=== PATIENT | male | born 1965 | race Caucasian/White ===

== ENCOUNTER 2019-03-13 11:23 | Emergency (ER) | payer OTHER ==
[~2019-03-13] VITALS: Ht 162.6 cm; Wt 76.7 kg
--- NOTE | 2019-03-13 12:03 | REP ---
There is soft tissue scalp swelling over the left occipital and parietal region. CT brain without contrast: History: Altered mental status. No comparison prior studies available. Findings: Preliminary digital director medical radiograph demonstrates what appears to be three ventricular shunt catheter is over the posterior calvarium. On bone window settings of the bony calvarium is otherwise intact. There is some vascular calcification in the carotid siphons. The visualized paranasal sinuses are clear. There are three intracranial ventriculostomy catheters noted. Two catheters are seen in the posterior fossa coursing through the right posterior cerebellar hemisphere and into the fourth ventricle and terminating in the midline at the midbrain level. There is diffuse atrophy of the right cerebellar hemisphere. The third ventriculostomy tube courses through the right occipital parietal lobe region into the right lateral ventricle. There is moderate ventriculomegaly involving the lateral and third ventricles. There is no evidence of midline shift. No intracranial hemorrhage or mass is seen. The fourth ventricle is normal in size. No transependymal resorption is appreciated. Impression: A total of three BALLAST INSPECTOR shunt catheters are noted in place. There is moderate ventriculomegaly involving the lateral and third ventricles. Normal fourth ventricle. Diffuse atrophy of the right cerebellar hemisphere is noted. No other acute intracranial abnormality. Left occipital parietal scalp swelling. Electronically Signed by Roger Almonte MD 03/13/2019 11:54 A
[2019-03-13 12:16] LABS: BASO % 0.5 % (0.0-1.0); EOS # 0.1 10^3/uL (0.0-0.5); EOS % 1.5 % (0.0-3.0); HEMATOCRIT 48.7 % (42.0-52.0); LYMPH # 0.8 10^3/uL (1.5-5.0); LYMPH % 13.5 % (24.0-44.0); MEAN CORPUSCULAR HEMOGLOBIN 31.5 pg (27.0-33.0); MEAN CORPUSCULAR HGB CONC 34.9 g/dl (32.0-36.5); MEAN CORPUSCULAR VOLUME 90.2 fl (80.0-96.0); MONO # 0.6 10^3/uL (0.0-0.8); MONO % 9.3 % (0.0-5.0); NEUTROPHILS # 4.6 10^3/uL (1.5-8.5); NEUTROPHILS % 74.9 % (36.0-66.0); PLATELET COUNT, AUTOMATED 209 10^3/uL (150-450); WHITE BLOOD COUNT 6.2 10^3/uL (4.0-10.0)
[2019-03-13 12:52] LABS: ALBUMIN 3.6 GM/DL (3.2-5.2); ALT/SGPT 26 U/L (12-78); BILIRUBIN,DIRECT 0.3 MG/DL (0.0-0.2); BILIRUBIN,TOTAL 1.4 MG/DL (0.2-1.0); BLOOD UREA NITROGEN 15 MG/DL (7-18); CALCIUM LEVEL 9.3 MG/DL (8.5-10.1); CARBON DIOXIDE LEVEL 31 MEQ/L (21-32); CHLORIDE LEVEL 104 MEQ/L (98-107); CK-MB VALUE MASS 1.2 NG/ML (<3.6); CPK CREATINE PHOSPHOKINASE 72 U/L (39-308); CREATININE FOR GFR 1.03 MG/DL (0.70-1.30); GLOMERULAR FILTRATION RATE > 60.0 (>56); GLUCOSE, FASTING 83 MG/DL (70-100); MB/CK RELATIVE INDEX 1.67 (< OR =4); POTASSIUM SERUM 4.6 MEQ/L (3.5-5.1); SODIUM LEVEL 140 MEQ/L (136-145); THYROID STIMULATING HORMONE 0.571 uIU/ML (0.358-3.740); TOTAL PROTEIN 7.1 GM/DL (6.4-8.2); TROPONIN I < 0.02 NG/ML (< 0.10)
--- NOTE | 2019-03-13 13:52 | REP ---
SHUNT SERIES: Six views. HISTORY: SHAKE BACKBOARD NOTCHER shunt. Ataxia. No comparison imaging. FINDINGS: Frontal and lateral views of the skull demonstrate three ventriculostomy catheters in place over the posterior calvarium. I cannot resolve a radiopaque catheter between the suboccipital cervical tissues on the lateral view and the mid chest level anteriorly in the right perihilar region. I cannot exclude a discontinuous or interrupted SHAKE BACKBOARD NOTCHER shunt catheter system. There is a large length of coiled catheter tubing in the right abdomen intraperitoneally. There are calcifications projecting over the right colon. The bowel gas pattern is unremarkable. There are surgical clips in the left upper quadrant. IMPRESSION: Ventriculoperitoneal shunt tubing noted in the head, chest and abdomen. I cannot visualize opaque tubing between the suboccipital cervical tissues and the right anterior mid chest level. Findings are suspicious for shunt tube discontinuity. There are no available prior radiographs. Electronically Signed by Roger Almonte MD 03/13/2019 03:18 P
[2019-03-13 14:03] LABS: VITAMIN B12 LEVEL 298 PG/ML
[2019-03-13 17:29] VITALS: BP 120/70
--- NOTE | 2019-03-14 00:39 | ECGEPIP ---
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
== END 2019-03-13 17:34 | disposition short-term general hospital (02) ==
LOC: M ED 11:23
DX: T85.02XA Displacement of ventricular intracranial (communicating) shunt, initial encounter (principal); R41.82 Altered mental status, unspecified; R69 Illness, unspecified; R27.0 Ataxia, unspecified; Z98.2 Presence of cerebrospinal fluid drainage device

== ENCOUNTER 2019-03-22 12:15 | Inpatient (IN) | payer OTHER ==
[~2019-03-22] VITALS: Ht 162.6 cm; Wt 75.0 kg
--- NOTE | 2019-03-22 12:44 | HPEPDOC ---
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 He was cleared for surgery and on 03-14-19 underwent a right sided frontal ventriculoperitoneal shunt placement without complication. His surgery was performed by Dr. Gonzalez of neurosurgery and Dr. Maurice of general surgery. Post-op shunt CT head showed, Shunt catheter placement with postsurgical changes as described. No acute intracranial hemorrhage. Moderate to severe diffuse ventriculomegaly. Shunt series imaging did not show kinking, however there was concern on XR abdomen of retained catheter fragment for which no further intervention was initiated. He was evaluated by therapy and noted to be well below his prior level of function and deemed medically appropriate for discharge to ARU on 03-22-19 REVIEW OF SYSTEMS: The following is a completed review of systems and has been reviewed. Review of systems otherwise unremarkable. PAIN: Patient self reports no pain EYES: No recent vision changes EARS, NOSE, & THROAT: No throat pain, or dysphagia, or rhinorrhea. CARDIOVASCULAR: Denies chest pain or palpitations PULMONARY: Denies shortness of breath GASTROINTESTINAL: Denies constipation/diarrhea GENITOURINARY: no dysuria MUSCULOSKELETAL:generalized weakness NEUROLOGICAL:gait instability/ hydrocephalus HEMATOLOGICAL: no easy bruising SKIN: skull incision PSYCHIATRIC: Unremarkable All other review of systems found to be negative. PAST MEDICAL HISTORY: as per HPI PAST SURGICAL HISTORY: as per HPI ALLERGIES: Please see below. MEDICATIONS: Please see below. 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 GENERAL: Pleasant and cooperative. No acute distress. HEENT: PERRL. Extraocular movements intact. Clear conjunctiva CARDIOVASCULAR: Regular rate and rhythm. No murmurs, rubs, or gallops LUNGS: Clear to auscultation bilaterally. No wheezes. No rhonchi ABDOMEN: Soft, nontender, nondistended. Positive bowel sounds. Normal active bowel sounds NEUROLOGICAL: Alert and oriented times three. Cranial nerves II through XII grossly intact. Sensation grossly intact no dysmetria EXTREMITIES: 5\5 strength bilateral upper extremities. 5\5 strength right lower extremity. 5/5 strength in left lower extremity. SKIN: right frontal bibi c/d/i, scattered and diffuse fibromas covering entire body LABORATORY DATA: Please see below. IMAGING: Imaging documentation personally reviewed by record. FUNCTIONAL STATUS: Premorbid: Independent with all activities of daily life as well as mobility, at times will use a cane or rollator On Admission: Minimum assistance for bathing, upper body dressing, bed chair and wheelchair transfers, toilet transfers, ambulation. GOALS: Modified Independent community distances with RW, stairs, functional transfers, dressing, bathing, toileting, medical optimization. ASSESSMENT:53-year-old M with past medical history of posterior fossa cyst s/p multiple ELECTRICAL TECH/PROJECT MANAGER shunts who presents status post new VPS placement PLAN: 1. rehab: PT- advance gait, improve balance, fall recovery- stretch/strengthen/ improve ROM bilat LE OT- stretch/strengthen/ improve ROM bilat UE, advance ADLs CUSTOMER SOLUTIONS ARCHITECT- evaluate and treat 2. 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 -avoid heavy lifiting >15 pounds, bibi ok to be removed 03-28-19, f/u Dr. Gonzalez 04-06-19 at 9:15 am -avoid delirogenic meds, will keep head of bed elevated 3. CArdio: no hx, will monitor BPs while here, medicine consulted to assist in overall management 4. Resp: encourage incentive spirometry 5. - monitor PVRs 6. GI ppx: protonix 7. DVT ppx: lovenox and teds 8. Pain: Tylenol prn 9. Dispo: TBD POST ADMISSION PHYSICIAN EVALUATION: Medical and functional status: Description of medical status, medical as sessment: As above. Rehabilitation diagnosis and current and prior cold morbid medical conditions as above. Risk of complications and plans to mitigate them as above. Description of functional status current status is as above. Prior status as above. Status compared to preadmission: There are no clinically significant differences between the patient's current status and the information described on the preadmission screening document. Treatment plan anticipated: Treatment plan is as described above. Required disciplines including physical therapy, occupational therapy, others as noted above. Intensity of services: 3 hours a day, 6 days a week. Special considerations: There are no specific special or safety considerations that would likely preclude immediate implementation of an intensive rehabilitation program or subsequently influence the plan of care. ATTESTATION: Considering all the information above, it is my best judgment that this patient requires intensive rehabilitation therapy as described above and an inpatient hospital environment due to the complexity of nursing, medical, and rehabilitation needs required by the patient. Furthermore, this patient can reasonably be expected to participate in an benefit from an inpatient rehabilitation stay with an interdisciplinary team approach to the delivery of rehabilitation care under the direction and supervision of rehabilitation physician. PROGNOSIS: Excellent ESTIMATED LENGTH OF STAY:10-14 days. PROJECTED DISCHARGE DESTINATION: Home with family support and any durable medical equipment required to increase functional safety and mobility. TIME SPENT COUNSELING AND COORDINATING INITIAL CARE: Greater than 70 minutes. Vital Signs Vital Signs Date Time Temp Pulse Resp B/P (MAP) Pulse Ox O2 Delivery O2 Flow Rate FiO2 03/22/19 15:00 97.7 84 20 112/75 (87) 98 Home Medications Scheduled Magnesium Hydroxide (Milk of Magnesia) 400 Mg/5 Ml Oral.susp, 45 ML PO QHS, (Reported) Scheduled PRN Acetaminophen (Acetaminophen ER) 650 Mg Tablet.er, 650 MG PO Q6H PRN for PAIN / FEVER, (Reported) Bisacodyl (Dulcolax) 10 Mg Supp.rect, 10 MG RI Q3RD PRN for CONSTIPATION, (Reported) Hydralazine HCl (Hydralazine HCl) 20 Mg/1 Ml Vial, 10 MG IV Q4H PRN for HIGH BLOOD PRESSURE, (Reported) IF SBP>160 Metoprolol Tartrate (Metoprolol Tartrate) 5 Mg/5 Ml Ampul, 5 MG IV Q6H PRN for HIGH BLOOD PRESSURE, (Reported) GIVE IF SBP >140 Ondansetron HCl (Ondansetron HCl) 4 Mg/5 Ml Solution, 4 MG IV Q8H PRN for NAUSEA OR VOMITING, (Reported) Sennosides (Senna) 8.6 Mg Tablet, 17.2 MG PO QHS PRN for CONSTIPATION, (Reported) Allergies Coded Allergies: No Known Allergies (Unverified , 03/13/19) A-FIB/CHADSVASC A-FIB History Current/History of A-Fib/PAF?: No NATE GARCIA MD Mar 22, 2019 12:44
[2019-03-22] MEDS ORDERED: ONDANSETRON 4 MG TAB (S0181) PO PRN (12:45)
[2019-03-22] MEDS ORDERED: ACETAMINOPHEN TAB 650MG DOSE (2X325MG) PO PRN (12:45)
[2019-03-22 15:00] VITALS: BP 112/75
[2019-03-22] MEDS ORDERED: CEFA1SOL IV (19:06)
[2019-03-22] MEDS ORDERED: MOM30SS2 PO (19:06)
[2019-03-22] MEDS ORDERED: ACET650T15 PO (19:06)
[2019-03-22] MEDS ORDERED: ONDA4SOL IV (19:06)
[2019-03-22] MEDS ORDERED: DULC10SU2 PR (19:06)
[2019-03-22] MEDS ORDERED: METO1INJ IV (19:06)
[2019-03-22] MEDS ORDERED: HEPA500023 IV (19:06)
[2019-03-22] MEDS ORDERED: HYDR20VL IV (19:18)
[2019-03-22] MEDS ORDERED: SENN1TAB8 PO (19:18)
--- NOTE | 2019-03-22 20:09 | CR.PDOC ---
General Date of Consultation: Mar 22, 2019 Referring Provider: NATE GARCIA MD Consultation REASON FOR CONSULTATION/CHIEF COMPLAINT: [We are consult to assist with medical management]. HISTORY OF PRESENT ILLNESS: [This is a 56-year-old male with a known history of hydrocephaly. He has underlying neurofibromatosis. He last had had a right occipital SNAP SHEARER shunt in 1998. The patient developed unsteadiness and dizziness. He was found to have a "broken" shunt with ventriculomegaly. He has consequently undergone shunt revision/replacement. The patient states this is only the second shunt that he has ever had.]. ALLERGIES: Please see below. HOME MEDICATIONS: Please see below. PAST MEDICAL HISTORY: Hydrocephaly, neurofibromatosis, pheochromocytoma. 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 The patient is not currently on any chronic medications and denies any other medical problems. PHYSICAL EXAMINATION: VITAL SIGNS: Please see below. GENERAL APPEARANCE: [Patient is independently ambulatory. He is not ill- appearing]. HEENT: [Neck is supple with no adenopathy or thyromegaly. He does have 2 surgical sites with bibi see his forehead and behind his right ear where he had his shunt revised. Patient is then palpable to the right side of his neck. Oral mucosa is moist]. RESPIRATORY: [Clear to auscultation]. CARDIOVASCULAR: [Regular rate and rhythm with no appreciable murmur]. ABDOMEN: [Soft, nontender, nondistended]. EXTREMITIES: [No peripheral edema or lesions]. NEUROLOGICAL: [Patient has mildly unsteady gait but compensates well and does not need acute assistance]. PSYCHIATRIC: [Patient has a pleasant demeanor]. LABORATORY DATA: Please see below. ASSESSMENT/PLAN: The patient has been placed in the acute rehabilitation unit for physical therapy. This is to regain steady mobility. He had had some dizziness and poor balance; this is expected to resolve. The patient otherwise does not have any acute medical problems, but we will continue to follow as needed. Review of orders shows him to be appropriately on ulcer prophylaxis, DVT prophylaxis and bowel care. Vital Signs/I&O Vital Signs Date Time Temp Pulse Resp B/P (MAP) Pulse Ox O2 Delivery O2 Flow Rate FiO2 03/22/19 15:00 97.7 84 20 112/75 (87) 98 Allergies Coded Allergies: No Known Allergies (Unverified , 03/13/19) Home Medications Scheduled Magnesium Hydroxide (Milk of Magnesia) 400 Mg/5 Ml Oral.susp, 45 ML PO QHS, (Reported) Scheduled PRN Acetaminophen (Acetaminophen ER) 650 Mg Tablet.er, 650 MG PO Q6H PRN for PAIN / FEVER, (Reported) Bisacodyl (Dulcolax) 10 Mg Supp.rect, 10 MG WI Q3RD PRN for CONSTIPATION, (Reported) Hydralazine HCl (Hydralazine HCl) 20 Mg/1 Ml Vial, 10 MG IV Q4H PRN for HIGH BLOOD PRESSURE, (Reported) IF SBP>160 Metoprolol Tartrate (Metoprolol Tartrate) 5 Mg/5 Ml Ampul, 5 MG IV Q6H PRN for HIGH BLOOD PRESSURE, (Reported) GIVE IF SBP >140 Ondansetron HCl (Ondansetron HCl) 4 Mg/5 Ml Solution, 4 MG IV Q8H PRN for NAUSEA OR VOMITING, (Reported) Sennosides (Senna) 8.6 Mg Tablet, 17.2 MG PO QHS PRN for CONSTIPATION, (Reported) Miscellaneous Medications Heparin Sodium,Porcine (Heparin Sodium) 5,000 Unit/1 Ml Syringe, 5,000 UNIT IV, (Reported) TANNER NIETO MD Mar 22, 2019 20:09
[2019-03-22 20:35] VITALS: BP 129/79
[2019-03-22] MEDS: DOCUSATE SODIUM 100 MG CAP PO SCH (21:00)
[2019-03-22] MEDS: SENNA 8.6 MG TAB (SENOKOT) PO SCH (21:00)
[2019-03-23 05:55] VITALS: BP 120/80
[2019-03-23 07:04] LABS: BASO % 0.5 % (0.0-1.0); EOS # 0.2 10^3/uL (0.0-0.5); EOS % 3.3 % (0.0-3.0); HEMATOCRIT 46.1 % (42.0-52.0); HEMOGLOBIN 16.5 g/dl (13.5-17.5); LYMPH # 1.1 10^3/uL (1.5-5.0); LYMPH % 16.4 % (24.0-44.0); MEAN CORPUSCULAR HEMOGLOBIN 32.7 pg (27.0-33.0); MEAN CORPUSCULAR HGB CONC 35.8 g/dl (32.0-36.5); MEAN CORPUSCULAR VOLUME 91.3 fl (80.0-96.0); MONO # 0.7 10^3/uL (0.0-0.8); MONO % 11.2 % (0.0-5.0); NEUTROPHILS # 4.4 10^3/uL (1.5-8.5); NEUTROPHILS % 67.4 % (36.0-66.0); PLATELET COUNT, AUTOMATED 251 10^3/uL (150-450); RED BLOOD COUNT 5.05 10^6/uL (4.30-6.10); WHITE BLOOD COUNT 6.6 10^3/uL (4.0-10.0)
[2019-03-23 07:40] LABS: ALBUMIN 3.2 GM/DL (3.2-5.2); ALT/SGPT 74 U/L (12-78); BILIRUBIN,TOTAL 0.7 MG/DL (0.2-1.0); BLOOD UREA NITROGEN 20 MG/DL (7-18); CALCIUM LEVEL 9.3 MG/DL (8.5-10.1); CARBON DIOXIDE LEVEL 29 MEQ/L (21-32); CHLORIDE LEVEL 101 MEQ/L (98-107); CREATININE FOR GFR 1.06 MG/DL (0.70-1.30); GLOMERULAR FILTRATION RATE > 60.0 (>56); GLUCOSE, FASTING 91 MG/DL (70-100); POTASSIUM SERUM 4.6 MEQ/L (3.5-5.1); SODIUM LEVEL 136 MEQ/L (136-145); TOTAL PROTEIN 6.9 GM/DL (6.4-8.2)
[2019-03-23] MEDS: PANTOPRAZOLE 40MG TAB (PROTONIX) PO SCH (08:01)
[2019-03-23] MEDS: DOCUSATE SODIUM 100 MG CAP PO SCH ×2 (08:01→21:14)
[2019-03-23] MEDS: ENOXAPARIN 40 MG/0.4 ML SYRINGE (J1650) SC SCH (08:01)
--- NOTE | 2019-03-23 12:45 | IPNPDOC ---
PM&R Progress Note DATE OF SERVICE: Mar 23, 2019 [place] Progress Note Subjective: Patient seen this morning walking to the gym with a cane. He says he slept well last night, denies having any pain and says he feels well overall. REVIEW OF SYSTEMS: The following is a completed review of systems and has been reviewed. Review of systems otherwise unremarkable. PAIN: Patient self reports no pain EYES: No recent vision changes EARS, NOSE, & THROAT: No throat pain, or dysphagia, or rhinorrhea. CARDIOVASCULAR: Denies chest pain or palpitations PULMONARY: Denies shortness of breath GASTROINTESTINAL: Denies constipation/diarrhea GENITOURINARY: no dysuria MUSCULOSKELETAL:generalized weakness NEUROLOGICAL:gait instability/ hydrocephalus HEMATOLOGICAL: no easy bruising SKIN: skull incision PSYCHIATRIC: Unremarkable All other review of systems found to be negative. PHYSICAL EXAMINATION: VITAL SIGNS: Please see below. GENERAL: Pleasant and cooperative. No acute distress. HEENT: PERRL. Extraocular movements intact. Clear conjunctiva CARDIOVASCULAR: Regular rate and rhythm. No murmurs, rubs, or gallops LUNGS: Clear to auscultation bilaterally. No wheezes. No rhonchi ABDOMEN: Soft, nontender, nondistended. Positive bowel sounds. Normal active bowel sounds NEUROLOGICAL: Alert and oriented times three. Cranial nerves II through XII grossly intact. Sensation grossly intact no dysmetria EXTREMITIES: 5\5 strength bilateral upper extremities. 5\5 strength right lower extremity. 5/5 strength in left lower extremity. 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 Gonzalez 04-06-19 at 9:15 am -avoid delirogenic meds, will keep head of bed elevated 3. CArdio: no hx, will monitor BPs while here, medicine consulted to assist in overall management 4. Resp: encourage incentive spirometry 5. - monitor PVRs 6. GI ppx: protonix 7. DVT ppx: lovenox and teds 8. Pain: Tylenol prn 9. Dispo: TBD Allergies Coded Allergies: No Known Allergies (Unverified , 03/13/19) Vital Signs Vital Signs Date Time Temp Pulse Resp B/P (MAP) Pulse Ox O2 Delivery O2 Flow Rate FiO2 03/23/19 05:55 98.9 59 17 120/80 (93) 98 Laboratory Data CBC/BMP Laboratory Tests 03/23/19 06:49 Labs 24H Laboratory Tests 2 03/23/19 06:49: Immature Granulocyte % (Auto) 1.2, Neutrophils (%) (Auto) 67.4H, Lymphocytes (%) (Auto) 16.4L, Monocytes (%) (Auto) 11.2H, Eosinophils (%) (Auto) 3.3H, Basophils (%) (Auto) 0.5, Neutrophils # (Auto) 4.4, Lymphocytes # (Auto) 1.1L, Monocytes # (Auto) 0.7, Eosinophils # (Auto) 0.2, Basophils # (Auto) 0.0, Nucleated Red Blood Cells % (auto) 0.0, Anion Gap 6L, Glomerular Filtration Rate > 60.0, Calcium Level 9.3, Total Bilirubin 0.7, Aspartate Amino Transf (AST/SGOT) 53H, Alanine Aminotransferase (ALT/SGPT) 74, Alkaline Phosphatase 85, Total Protein 6.9, Albumin 3.2, Albumin/Globulin Ratio 0.86L Current Medications Current Medications Current Medications Medications (Trade) Dose Ordered Sig/Carito Route PRN Reason Start Time Stop Time Status Last Admin Dose Admin Acetaminophen (Tylenol Tab) 650 mg Q4HP PRN PO MILD PAIN (PS 1-4) 03/22/19 12:45 Docusate Sodium (Colace) 100 mg BID PO 03/22/19 21:00 Enoxaparin Sodium (Lovenox) 40 mg DAILY SC 03/23/19 09:00 03/23/19 08:01 Home Med (Med Rec Complete!) ASDIRECTED XX 03/22/19 19:30 03/22/19 20:03 DC Ondansetron HCl (Zofran) 4 mg Q6HP PRN PO NAUSEA 03/22/19 12:45 Pantoprazole Sodium (Protonix) 40 mg DAILY PO 03/23/19 09:00 Senna (Senokot) 1 tab QHS PO 03/22/19 21:00 NATE GARCIA MD Mar 23, 2019 12:45
[2019-03-23 14:00] VITALS: BP 132/73
[2019-03-23 20:00] VITALS: BP 116/57
[2019-03-23] MEDS: SENNA 8.6 MG TAB (SENOKOT) PO SCH (21:14)
[2019-03-24 05:55] VITALS: BP 137/80
[2019-03-24] MEDS: DOCUSATE SODIUM 100 MG CAP PO SCH ×2 (08:55→20:07)
[2019-03-24] MEDS: ENOXAPARIN 40 MG/0.4 ML SYRINGE (J1650) SC SCH (08:55)
[2019-03-24] MEDS: PANTOPRAZOLE 40MG TAB (PROTONIX) PO SCH (08:55)
[2019-03-24 14:01] VITALS: BP 128/80
[2019-03-24 19:45] VITALS: BP 110/63
[2019-03-24] MEDS: SENNA 8.6 MG TAB (SENOKOT) PO SCH (20:07)
[2019-03-25 05:23] VITALS: BP 112/70
[2019-03-25 08:19] LABS: HEMATOCRIT 46.7 % (42.0-52.0); MEAN CORPUSCULAR HEMOGLOBIN 31.1 pg (27.0-33.0); MEAN CORPUSCULAR HGB CONC 34.3 g/dl (32.0-36.5); MEAN CORPUSCULAR VOLUME 90.9 fl (80.0-96.0); PLATELET COUNT, AUTOMATED 278 10^3/uL (150-450); RED BLOOD COUNT 5.14 10^6/uL (4.30-6.10); WHITE BLOOD COUNT 8.3 10^3/uL (4.0-10.0)
[2019-03-25] MEDS: PANTOPRAZOLE 40MG TAB (PROTONIX) PO SCH (08:30)
[2019-03-25] MEDS: DOCUSATE SODIUM 100 MG CAP PO SCH ×2 (08:30→20:46)
[2019-03-25] MEDS: ENOXAPARIN 40 MG/0.4 ML SYRINGE (J1650) SC SCH (09:00)
[2019-03-25 14:00] VITALS: BP 123/66
--- NOTE | 2019-03-25 17:29 | IPNPDOC ---
Text Note Date of Service The patient was seen on 03/25/19. NOTE SUBJECTIVE: This is a 56-year-old male with a history of hydrocephaly. He has underlying neurofibromatosis. He is admitted for rehabilitation after undergoing shunt revision/replacement. He is doing quite well. OBJECTIVE: Physical exam: HENT: Neck is supple with no thyromegaly or adenopathy. Shunt line is palpable to the right side of his neck. Incision site to his right fore head is closed; bibi are removed by this sign writer hand. [place] were also removed from the small incision site behind his right ear. Cardiovascular: Regular rate and rhythm with no appreciable murmur. Respiratory: Clear to auscultation. Abdomen: Soft, nontender, nondistended. Extremities: No peripheral edema or lesions, pedal pulses are palpable. Neuro: Patient has unsteady gait but balances well, does not require much assistance. Skin: Patient does have scattered neurofibromatosis lesions ASSESSMENT/PLAN: Mr. anderson has been placed in the acute rehabilitation unit for physical therapy. He is doing well. He is status post revision of his FIELD SERVICE POULTRY TECHNICIAN shunt. Incision sites are clean and healed without drainage and this sign writer hand has removed the bibi. VS,Fishbone, I+O VS, Fishbone, I+O Laboratory Tests 03/25/19 07:58 Vital Signs Date Time Temp Pulse Resp B/P (MAP) Pulse Ox O2 Delivery O2 Flow Rate FiO2 03/25/19 14:00 98.3 72 18 123/66 (85) 97 Room Air I&O- Last 24 Hours up to 6 AM 03/25/19 06:00 Intake Total 540 ml Output Total 0 ml Balance 540 ml TANNER NIETO MD Mar 25, 2019 17:28
[2019-03-25 19:45] VITALS: BP 110/66
[2019-03-25] MEDS: SENNA 8.6 MG TAB (SENOKOT) PO SCH (20:46)
[2019-03-26 05:05] VITALS: BP 133/79
[2019-03-26] MEDS: DOCUSATE SODIUM 100 MG CAP PO SCH ×2 (08:29→20:36)
[2019-03-26] MEDS: ENOXAPARIN 40 MG/0.4 ML SYRINGE (J1650) SC SCH (08:29)
[2019-03-26] MEDS: PANTOPRAZOLE 40MG TAB (PROTONIX) PO SCH (08:33)
[2019-03-26 14:00] VITALS: BP 135/82
[2019-03-26 20:00] VITALS: BP 121/74
[2019-03-26] MEDS: SENNA 8.6 MG TAB (SENOKOT) PO SCH (20:36)
[2019-03-27 06:00] VITALS: BP 117/74
[2019-03-27 06:58] LABS: BASO % 0.6 % (0.0-1.0); EOS # 0.3 10^3/uL (0.0-0.5); EOS % 3.5 % (0.0-3.0); HEMATOCRIT 49.6 % (42.0-52.0); HEMOGLOBIN 17.4 g/dl (13.5-17.5); LYMPH % 14.1 % (24.0-44.0); MEAN CORPUSCULAR HGB CONC 35.1 g/dl (32.0-36.5); MEAN CORPUSCULAR VOLUME 91.3 fl (80.0-96.0); MONO # 0.7 10^3/uL (0.0-0.8); MONO % 9.3 % (0.0-5.0); NEUTROPHILS # 5.1 10^3/uL (1.5-8.5); NEUTROPHILS % 71.5 % (36.0-66.0); PLATELET COUNT, AUTOMATED 252 10^3/uL (150-450); RED BLOOD COUNT 5.43 10^6/uL (4.30-6.10); WHITE BLOOD COUNT 7.1 10^3/uL (4.0-10.0)
[2019-03-27 07:18] LABS: BLOOD UREA NITROGEN 15 MG/DL (7-18); CALCIUM LEVEL 9.5 MG/DL (8.5-10.1); CARBON DIOXIDE LEVEL 24 MEQ/L (21-32); CHLORIDE LEVEL 106 MEQ/L (98-107); CREATININE FOR GFR 0.94 MG/DL (0.70-1.30); GLOMERULAR FILTRATION RATE > 60.0 (>56); GLUCOSE, FASTING 94 MG/DL (70-100); POTASSIUM SERUM 4.2 MEQ/L (3.5-5.1); SODIUM LEVEL 137 MEQ/L (136-145)
[2019-03-27] MEDS: PANTOPRAZOLE 40MG TAB (PROTONIX) PO SCH (08:58)
[2019-03-27] MEDS: DOCUSATE SODIUM 100 MG CAP PO SCH ×2 (08:58→19:59)
[2019-03-27] MEDS: ENOXAPARIN 40 MG/0.4 ML SYRINGE (J1650) SC SCH (08:58)
[2019-03-27 14:00] VITALS: BP 122/72
[2019-03-27] MEDS: SENNA 8.6 MG TAB (SENOKOT) PO SCH (19:59)
[2019-03-27 20:00] VITALS: BP 117/69
[2019-03-28 05:25] VITALS: BP 115/76
[2019-03-28 06:47] LABS: HEMATOCRIT 45.1 % (42.0-52.0); HEMOGLOBIN 15.6 g/dl (13.5-17.5); MEAN CORPUSCULAR HEMOGLOBIN 31.4 pg (27.0-33.0); MEAN CORPUSCULAR HGB CONC 34.6 g/dl (32.0-36.5); MEAN CORPUSCULAR VOLUME 90.7 fl (80.0-96.0); PLATELET COUNT, AUTOMATED 232 10^3/uL (150-450); RED BLOOD COUNT 4.97 10^6/uL (4.30-6.10); WHITE BLOOD COUNT 6.3 10^3/uL (4.0-10.0)
[2019-03-28] MEDS: PANTOPRAZOLE 40MG TAB (PROTONIX) PO SCH (09:42)
[2019-03-28] MEDS: DOCUSATE SODIUM 100 MG CAP PO SCH ×2 (09:42→20:47)
[2019-03-28] MEDS: ENOXAPARIN 40 MG/0.4 ML SYRINGE (J1650) SC SCH (09:43)
--- NOTE | 2019-03-28 11:46 | IPNPDOC ---
PM&R Progress Note DATE OF SERVICE: Mar 27, 2019 Instrument Engineer Progress Note Subjective: Patient seen this evening reporting he does not feel off balance or weaker in his limbs. he is eager to go home Wednesday. REVIEW OF SYSTEMS: The following is a completed review of systems and has been reviewed. Review of systems otherwise unremarkable. PAIN: Patient self reports no pain EYES: No recent vision changes EARS, NOSE, & THROAT: No throat pain, or dysphagia, or rhinorrhea. CARDIOVASCULAR: Denies chest pain or palpitations PULMONARY: Denies shortness of breath GASTROINTESTINAL: Denies constipation/diarrhea GENITOURINARY: no dysuria MUSCULOSKELETAL:generalized weakness NEUROLOGICAL:gait instability/ hydrocephalus HEMATOLOGICAL: no easy bruising SKIN: skull incision PSYCHIATRIC: Unremarkable All other review of systems found to be negative. PHYSICAL EXAMINATION: VITAL SIGNS: Please see below. GENERAL: Pleasant and cooperative. No acute distress. HEENT: PERRL. Extraocular movements intact. Clear conjunctiva CARDIOVASCULAR: Regular rate and rhythm. No murmurs, rubs, or gallops LUNGS: Clear to auscultation bilaterally. No wheezes. No rhonchi ABDOMEN: Soft, nontender, nondistended. Positive bowel sounds. Normal active bowel sounds NEUROLOGICAL: Alert and oriented times three. Cranial nerves II through XII grossly intact. Sensation grossly intact no dysmetria EXTREMITIES: 5\5 strength bilateral upper extremities. 5\5 strength right lower extremity. 5/5 strength in left lower extremity. 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 Gonzalez 04-06-19 at 9:15 am -avoid delirogenic meds, will keep head of bed elevated 3. CArdio: no hx, will monitor BPs while here, medicine consulted to assist in overall management 4. Resp: encourage incentive spirometry 5. - monitor PVRs 6. GI ppx: protonix 7. DVT ppx: lovenox and teds 8. Pain: Tylenol prn 9. Dispo: 03-29-19 to home with supervision Allergies Coded Allergies: No Known Allergies (Unverified , 03/13/19) Vital Signs Vital Signs Date Time Temp Pulse Resp B/P (MAP) Pulse Ox O2 Delivery O2 Flow Rate FiO2 03/28/19 05:25 98.6 67 17 115/76 (89) 97 Room Air Laboratory Data CBC/BMP Laboratory Tests 03/28/19 06:11 Labs 24H Laboratory Tests 2 03/28/19 06:11: Nucleated Red Blood Cells % (auto) 0.0 Current Medications Current Medications Current Medications Medications (Trade) Dose Ordered Sig/Carito Route PRN Reason Start Time Stop Time Status Last Admin Dose Admin Acetaminophen (Tylenol Tab) 650 mg Q4HP PRN PO MILD PAIN (PS 1-4) 03/22/19 12:45 Docusate Sodium (Colace) 100 mg BID PO 03/22/19 21:00 03/28/19 09:42 Enoxaparin Sodium (Lovenox) 40 mg DAILY SC 03/23/19 09:00 03/28/19 09:43 Home Med (Med Rec Complete!) ASDIRECTED XX 03/22/19 19:30 03/22/19 20:03 DC Ondansetron HCl (Zofran) 4 mg Q6HP PRN PO NAUSEA 03/22/19 12:45 Pantoprazole Sodium (Protonix) 40 mg DAILY PO 03/23/19 09:00 03/28/19 09:42 Senna (Senokot) 1 tab QHS PO 03/22/19 21:00 03/27/19 19:59 NATE GARCIA MD Mar 28, 2019 11:46
--- NOTE | 2019-03-28 11:52 | IPNPDOC ---
PM&R Progress Note DATE OF SERVICE: Mar 28, 2019 [employer] Progress Note Subjective: Patient seen in therapy vacuuming, carrying items, with a lean to both the right and left, reporting he feels his walking is improved and that he is ready to go home. REVIEW OF SYSTEMS: The following is a completed review of systems and has been reviewed. Review of systems otherwise unremarkable. PAIN: Patient self reports no pain EYES: No recent vision changes EARS, NOSE, & THROAT: No throat pain, or dysphagia, or rhinorrhea. CARDIOVASCULAR: Denies chest pain or palpitations PULMONARY: Denies shortness of breath GASTROINTESTINAL: Denies constipation/diarrhea GENITOURINARY: no dysuria MUSCULOSKELETAL:generalized weakness NEUROLOGICAL:gait instability/ hydrocephalus HEMATOLOGICAL: no easy bruising SKIN: skull incision PSYCHIATRIC: Unremarkable All other review of systems found to be negative. PHYSICAL EXAMINATION: VITAL SIGNS: Please see below. GENERAL: Pleasant and cooperative. No acute distress. HEENT: PERRL. Extraocular movements intact. Clear conjunctiva CARDIOVASCULAR: Regular rate and rhythm. No murmurs, rubs, or gallops LUNGS: Clear to auscultation bilaterally. No wheezes. No rhonchi ABDOMEN: Soft, nontender, nondistended. Positive bowel sounds. Normal active bowel sounds NEUROLOGICAL: Alert and oriented times three. Cranial nerves II through XII grossly intact. Sensation grossly intact no dysmetria EXTREMITIES: 5\5 strength bilateral upper extremities. 5\5 strength right lower extremity. 5/5 strength in left lower extremity. 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 Gonzalez 04-06-19 at 9:15 am -avoid delirogenic meds, will keep head of bed elevated -patient with vacillating mild leans to the right and left with ambulation, but overall steady on his feet 3. CArdio: no hx, will monitor BPs while here, medicine consulted to assist in overall management-stable 4. Resp: encourage incentive spirometry 5. - monitor PVRs 6. GI ppx: protonix 7. DVT ppx: lovenox and teds 8. Pain: Tylenol prn 9. Dispo: 03-29-19 to home with supervision Allergies Coded Allergies: No Known Allergies (Unverified , 03/13/19) Vital Signs Vital Signs Date Time Temp Pulse Resp B/P (MAP) Pulse Ox O2 Delivery O2 Flow Rate FiO2 03/28/19 05:25 98.6 67 17 115/76 (89) 97 Room Air Laboratory Data CBC/BMP Laboratory Tests 03/28/19 06:11 Labs 24H Laboratory Tests 2 03/28/19 06:11: Nucleated Red Blood Cells % (auto) 0.0 Current Medications Current Medications Current Medications Medications (Trade) Dose Ordered Sig/Carito Route PRN Reason Start Time Stop Time Status Last Admin Dose Admin Acetaminophen (Tylenol Tab) 650 mg Q4HP PRN PO MILD PAIN (PS 1-4) 03/22/19 12:45 Docusate Sodium (Colace) 100 mg BID PO 03/22/19 21:00 03/28/19 09:42 Enoxaparin Sodium (Lovenox) 40 mg DAILY SC 03/23/19 09:00 03/28/19 09:43 Home Med (Med Rec Complete!) ASDIRECTED XX 03/22/19 19:30 03/22/19 20:03 DC Ondansetron HCl (Zofran) 4 mg Q6HP PRN PO NAUSEA 03/22/19 12:45 Pantoprazole Sodium (Protonix) 40 mg DAILY PO 03/23/19 09:00 03/28/19 09:42 Senna (Senokot) 1 tab QHS PO 03/22/19 21:00 03/27/19 19:59 NATE GARCIA MD Mar 28, 2019 11:52
[2019-03-28 14:00] VITALS: BP 116/65
[2019-03-28 19:25] VITALS: BP 121/73
[2019-03-28] MEDS: SENNA 8.6 MG TAB (SENOKOT) PO SCH (20:47)
[2019-03-29 05:15] VITALS: BP 115/71
[2019-03-29] MEDS: PANTOPRAZOLE 40MG TAB (PROTONIX) PO SCH (09:22)
[2019-03-29] MEDS: DOCUSATE SODIUM 100 MG CAP PO SCH (09:22)
== END 2019-03-29 14:25 | disposition home or self-care (01) | DRG 58 ==
LOC: M PM&R 14:52
PROVIDERS: ADMIT Physical Medicine & Rehabilitation; ATTEND Physical Medicine & Rehabilitation
DX: R26.81 Unsteadiness on feet (principal); G91.9 Hydrocephalus, unspecified; Q85.01 Neurofibromatosis, type 1; Z79.899 Other long term (current) drug therapy

== ENCOUNTER 2019-11-21 14:49 | Emergency (ER) | payer OTHER ==
[~2019-11-21] VITALS: Ht 162.6 cm; Wt 75.0 kg
[~2019-11-21 14:49] MED LIST: ACET650T15 PO; CEFA1SOL IV; DULC10SU2 PR; HEPA500023 IV; HYDR20VI2 IV; METO1INJ IV; MOM30SS2 PO; ONDA4SOL IV; SENN-80 PO
[2019-11-21 15:34] LABS: BASO % 0.3 % (0.0-1.0); EOS # 0.1 10^3/uL (0.0-0.5); EOS % 1.7 % (0.0-3.0); HEMATOCRIT 49.5 % (42.0-52.0); HEMOGLOBIN 17.2 g/dl (13.5-17.5); LYMPH # 0.9 10^3/uL (1.5-5.0); LYMPH % 12.2 % (24.0-44.0); MEAN CORPUSCULAR HEMOGLOBIN 29.9 pg (27.0-33.0); MEAN CORPUSCULAR HGB CONC 34.7 g/dl (32.0-36.5); MEAN CORPUSCULAR VOLUME 86.1 fl (80.0-96.0); MONO # 0.8 10^3/uL (0.0-0.8); MONO % 10.7 % (0.0-5.0); NEUTROPHILS # 5.6 10^3/uL (1.5-8.5); NEUTROPHILS % 74.7 % (36.0-66.0); PLATELET COUNT, AUTOMATED 243 10^3/uL (150-450); RED BLOOD COUNT 5.75 10^6/uL (4.30-6.10); WHITE BLOOD COUNT 7.5 10^3/uL (4.0-10.0)
--- NOTE | 2019-11-21 17:21 | REP ---
Clinical: Unsteady gait. History of ventriculomegaly. Technique: Axial noncontrast images from the skull base to the vertex with coronal re-formations. Comparison: 03/13/2019. Findings: Current examination demonstrates four separate ventriculoperitoneal shunts. Moderate to significant symmetric ventriculomegaly is again noted and stable. Gilman white differentiation is relatively maintained. There is no evidence for acute intracranial hemorrhage or acute mass/mass effect. No evidence for acute infarction. No extra-axial fluid collection. Calvarium is within normal limits. Moderate left posterior occipital scalp swelling again identified and unchanged. Impression: 1. Four separate ventriculoperitoneal shunts are identified. 2. Moderate to significant ventriculomegaly unchanged. 3. No acute intracranial hemorrhage, obvious infarction, or pathology otherwise appreciated. Electronically Signed by Juan Najera MD 11/21/2019 05:13 P
--- NOTE | 2019-11-21 17:24 | REP ---
Clinical: Ventriculoperitoneal shunt series. Technique: AP and lateral views of the skull, AP view of the chest, two supine views of the abdomen and pelvis. Findings: Four separate ventriculoperitoneal shunts are identified and appear continuous along their course into the abdomen. Calvarium is relatively normal / intact. Frontal chest x-ray demonstrates no acute cardiopulmonary process. Two supine views of the abdomen and pelvis demonstrate relatively nonspecific bowel gas pattern. Nonspecific, chronic benign calcifications suggested along the lateral aspect of the right mid abdomen. Surgical clips noted in the left upper quadrant. Skeletal structures are intact. Impression: Multiple ventriculoperitoneal shunts appear intact. No obvious acute abnormality by radiographic evaluation. Electronically Signed by Juan Najera MD 11/21/2019 05:15 P
[2019-11-21 17:59] VITALS: BP 121/86
--- NOTE | 2019-11-21 21:45 | ECGEPIP ---
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
== END 2019-11-21 18:02 | disposition short-term general hospital (02) ==
LOC: M ED 14:49
DX: R27.0 Ataxia, unspecified (principal); Z98.2 Presence of cerebrospinal fluid drainage device

== ENCOUNTER 2020-02-10 16:01 | Emergency (ER) | payer OTHER ==
[~2020-02-10] VITALS: Ht 177.8 cm; Wt 70.1 kg
[2020-02-10 16:40] LABS: BASO % 0.1 % (0.0-1.0); EOS % 0.2 % (0.0-3.0); HEMATOCRIT 45.2 % (42.0-52.0); LYMPH # 0.6 10^3/uL (1.5-5.0); LYMPH % 7.6 % (24.0-44.0); MEAN CORPUSCULAR HEMOGLOBIN 29.8 pg (27.0-33.0); MEAN CORPUSCULAR HGB CONC 33.2 g/dl (32.0-36.5); MEAN CORPUSCULAR VOLUME 89.7 fl (80.0-96.0); MONO # 0.6 10^3/uL (0.0-0.8); NEUTROPHILS % 84.7 % (36.0-66.0); PLATELET COUNT, AUTOMATED 330 10^3/uL (150-450); RED BLOOD COUNT 5.04 10^6/uL (4.30-6.10); WHITE BLOOD COUNT 8.2 10^3/uL (4.0-10.0)
--- NOTE | 2020-02-10 17:03 | REPVR ---
PROCEDURE INFORMATION: Exam: CT Head Without Contrast Exam date and time: 02/10/2020 4:32 PM Age: 54 years old Clinical indication: Condition or disease; Other: Altered mental status - stat - shunt presence; Prior surgery; Surgery date: 1-6 months TECHNIQUE: Imaging protocol: Computed tomography of the head without contrast. Radiation optimization: All CT scans at this facility use at least one of these dose optimization techniques: automated exposure control; mA and/or kV adjustment per patient size (includes targeted exams where dose is matched to clinical indication); or iterative reconstruction. COMPARISON: CT Head without contrast 11/21/2019 3:37 PM FINDINGS: Tubes, catheters and devices: There has been interval removal of a ventricular shunt from a right frontal approach. There has been interval placement of a ventricular shunt from a left frontal approach with its distal tip in the anterior horn of the right lateral ventricle. There is a stable ventricular shunt from a right parietal approach with its distal tip in the body of the right lateral ventricle. There are [address] from a right occipital approach unchanged. One has its distal tip in the posterior fossa and the 2nd adjacent to the cerebral aqueduct. Brain: There is low attenuation within the white matter adjacent to the posterior aspect of the ventricles, which can be seen with transependymal spread of CSF.There is low attenuation in the left frontal white matter adjacent to the shunt. There is no acute hemorrhage. There is stable atrophy of the right cerebellar hemisphere. Ventricles: There has been interval enlargement of the lateral and 3rd ventricles. Bones/joints: No acute fracture. Sinuses: Visualized sinuses are unremarkable. No fluid levels. Mastoid air cells: Visualized mastoid air cells are well aerated. Soft tissues: Unremarkable. IMPRESSION: 1. Interval removal of right frontal ventricular shunt and placement of left frontal ventricular shunt. 2. Enlargement of the lateral and 3rd ventricles with findings worrisome for transependymal spread of CSF. Shunt dysfunction should be excluded. Electronically signed by: Silver Tai On 02/10/2020 17:03:06 PM
[2020-02-10 17:05] LABS: ABG BASE EXCESS -0.1 (-2.0-2.0); ABG HCO3 24.6 MEQ/L (22.0-26.0); ABG O2 SATURATION 99.3 % (95.0-99.0); ABG PARTIAL PRESSURE CO2 40.1 mmHg (35.0-45.0); ABG PARTIAL PRESSURE O2 165.7 mmHg (75.0-100.0); ABG STANDARD HCO3 24.5 MEQ/L (22.0-26.0); ABG TOTAL CO2 25.8 MEQ/L (22.0-29.0); ABG pH (ARTERIAL) 7.405 UNITS (7.350-7.450)
[2020-02-10 17:08] LABS: ACETAMINOPHEN LEVEL < 2.0 UG/ML (10.0-30.0); ALBUMIN 3.2 GM/DL (3.2-5.2); ALT/SGPT 15 U/L (12-78); BILIRUBIN,DIRECT 0.3 MG/DL (0.0-0.2); BILIRUBIN,TOTAL 1.1 MG/DL (0.2-1.0); CK-MB VALUE MASS 1.1 NG/ML (<3.6); CPK CREATINE PHOSPHOKINASE 77 U/L (39-308); ETHYL ALCOHOL (ETHANOL) < 0.003 % (0.000-0.010); MB/CK RELATIVE INDEX 1.43 (< OR =4); SALICYLATE LEVEL < 1.7 MG/DL (5.0-30.0); THYROID STIMULATING HORMONE 0.477 uIU/ML (0.358-3.740); TOTAL PROTEIN 7.6 GM/DL (6.4-8.2); TROPONIN I < 0.02 NG/ML (< 0.10)
--- NOTE | 2020-02-10 17:17 | REPVR ---
PROCEDURE INFORMATION: Exam: XR Chest, 1 View Exam date and time: 02/10/2020 4:40 PM Age: 54 years old Clinical indication: Other: AMS; Additional info: Altered mental status TECHNIQUE: Imaging protocol: XR of the chest Views: 1 view. COMPARISON: 11/21/2019. FINDINGS: Tubes, catheters and devices: There has been placement of a a left-sided shunt catheter along the neck and chest. It is contiguous. There is been removal of a right shunt catheter. There is partial visualization of a right shunt catheter which extends from the abdomen and ends in the right mid chest. There are clips in the epigastrium. Lungs: No consolidation. Pleural space: No pleural effusion. No pneumothorax. Heart/Mediastinum: No cardiomegaly. Bones/joints: Unremarkable. IMPRESSION: 1. There is no evidence of active pulmonary disease. 2. Interval placement of left-sided shunt catheter which is contiguous over the visualized neck and chest. Electronically signed by: Silver Tai On 02/10/2020 17:17:20 PM
[2020-02-10] MEDS ORDERED: MANNITOL 25% 12.5 GM/50 ML VIAL (J2150) As Ordered ONE ×2 (17:19→17:22)
--- NOTE | 2020-02-10 17:26 | REPVR ---
PROCEDURE INFORMATION: Exam: XR Shunt Series With 4 XR Procedures Exam date and time: 02/10/2020 4:41 PM Age: 54 years old Clinical indication: Other: AMS; Prior surgery; Additional info: Altered ms TECHNIQUE: Imaging protocol: XR Shunt Series was performed with skull less than 4 views, neck 1 view, chest 1 view, and abdomen 1 view. COMPARISON: CT Head without contrast 02/10/2020 4:23 PM FINDINGS: Tubes, catheters and devices: There has been interval placement of a shunt from a left frontal approach. It has a valve. It continues to the left neck. There is a shunt tubing over the left neck and chest. There is elongated shunt tube with coils in the left abdomen. There is been removal of a right frontal shunt catheter. There is a ventricular catheter from a right parietal approach its tubing extends towards a right occipital shunt. There is a aborted posterior fossa shunt. There are multiple aborted intra-abdominal shunt tubings. Sinuses: Visualized paranasal sinuses are well aerated. Airway: Upper airway and trachea are unremarkable in the neck and chest. Lungs: No consolidations. Gastrointestinal tract: Bowel is unremarkable. Bones/joints: Normal. No fracture. No dislocation. Soft tissues: No soft tissue swelling. IMPRESSION: 1. There is been removal of a right ventriculostomy and associated shunt tubing in the right neck and chest. 2. There is been interval placement of a left ventriculostomy with shunting ovary in the left neck and chest. Its distal tip is likely intra-abdominal but is difficult to identify due to multiple aborted shunt tubings. 3. Given the CT of the head findings, shunt dysfunction appears present. Assessment of the valve function and shunt patency should be performed. Electronically signed by: Silver Tai On 02/10/2020 17:26:31 PM
[2020-02-10] MEDS ORDERED: MANNITOL IV ONE (17:30)
[2020-02-10 17:42] LABS: INR 1.05; PROTHROMBIN TIME 13.9 SECONDS (11.8-14.0)
[2020-02-10 17:46] VITALS: BP 124/78
[2020-02-10 19:27] LABS: AMPHETAMINES LEVEL URINE NEGATIVE (NEGATIVE); BARBITURATES URINE NEGATIVE (NEGATIVE); BENZODIAZEPINES URINE NEGATIVE (NEGATIVE); CANNABINOIDS URINE NEGATIVE (NEGATIVE); COCAINE METABOLITE URINE NEGATIVE (NEGATIVE); METHADONE URINE NEGATIVE (NEGATIVE); OPIATES URINE NEGATIVE (NEGATIVE); PHENCYCLIDINE URINE NEGATIVE (NEGATIVE)
--- NOTE | 2020-02-20 19:46 | ECGEPIP ---
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
== END 2020-02-10 17:49 | disposition short-term general hospital (02) ==
LOC: M ED 16:01
DX: T85.09XA Other mechanical complication of ventricular intracranial (communicating) shunt, initial encounter (principal); R41.82 Altered mental status, unspecified
CPT/HCPCS: 36600; 70450; 71045; 75809; 80047; 80076; 80307; 81001; 82140; 82550; 82553; 82803; 83605; 84443; 85025; 85610; 85730; 87040; 93005; 93041; 99285; G0480; J2150

== ENCOUNTER 2020-02-26 15:03 | Inpatient (IN) | payer OTHER ==
[~2020-02-26] VITALS: Ht 152.4 cm; Wt 71.4 kg
--- NOTE | 2020-02-26 15:16 | HPEPDOC ---
[employer] Clerk Note DATE OF ADMISSION: 02-26-20 DATE OF SERVICE: 02-27-20 TIME OF ADMISSION: Please refer to physician's admission order. SOURCE OF ADMISSION INFORMATION: [facility] record and patient CHIEF COMPLAINT: hydrocephalus HISTORY OF PRESENT ILLNESS: 54M pmh neurofibromatosis type 1 with posterior fossa cystoperitoneal shunt placed in 1998 and a right frontal VPS placed followed by a left frontal VPS placed presented to [facility] 02-10-20 with fatigue and worsening mental status with CTH on 02-11-20 showing, Slight interval increase in ventricular system size when compared to the prior. There is new pneumocephalus noted in the right anterior lateral ventricle, the temporal horn of the left ventricle and some air noted tracking along the posterior falx region. Hypoattenuation noted surrounding the periventricular regions likely related to transependymal edema. No evidence of acute infarction or intracranial hemorrhage. He was evaluated by neurosurgery for his hydrocephalus and underwent removal of the infected left frontal VPS with EVD placement and started on IV antibiotics for CSF cultures growing cutibacterium. He had an allergic reaction to Ceftriaxone and was maintained on Vanco and IV Levaquin to be continued until switching to po doxycycline on 03-04-20. On 02-23-20 he returned to the OR for a left frontal VPS- lap assisted procedure with post-op complications of nausea and vomiting with dilated bowels on 02-24-20. NGT was initially placed, but he then had a bowel movement with flatus and was advance from clear liquid to regular diet on 02-26-20. He was noted to have hypokalemia and given supplementation. He had deficits in mobility and ADLs below his prior level of function and was deemed medically appropriate for discharge to ARU. REVIEW OF SYSTEMS: The following is a completed review of systems and has been reviewed. Review of systems otherwise unremarkable. PAIN: Patient self reports no pain EYES: No recent vision changes EARS, NOSE, & THROAT: No throat pain, or dysphagia, or rhinorrhea CARDIOVASCULAR: Denies chest pain or palpitations PULMONARY: Denies shortness of breath GASTROINTESTINAL: Denies constipation/diarrhea GENITOURINARY: deneis dysuria MUSCULOSKELETAL: generalized weakness NEUROLOGICAL: +ataxia HEMATOLOGICAL: denies easy bruising SKIN: abdominal incisions and left frontal scalp incisions PSYCHIATRIC: Unremarkable All other review of systems found to be negative. PAST MEDICAL HISTORY: as per HPI PAST SURGICAL HISTORY: as per HPI ALLERGIES: Please see below. MEDICATIONS: Please see below. 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 GENERAL: Pleasant and cooperative. No acute distress. HEENT: PERRL. Extraocular movements intact. Clear conjunctiva CARDIOVASCULAR: Regular rate and rhythm. No murmurs, rubs, or gallops LUNGS: Clear to auscultation bilaterally. No wheezes. No rhonchi ABDOMEN: Soft, nontender, nondistended. Normal active bowel sounds, healing laparoscopic incisions NEUROLOGICAL: Alert and oriented times three. Cranial nerves II through XII grossly intact. Sensation grossly intact] +ataxia EXTREMITIES: 5\5 strength bilateral upper extremities. 5\5 strength right lower extremity. 5/5 strength in left lower extremity. SKIN: healing abdominal and scalp incisions LABORATORY DATA: Please see below. IMAGING:Imaging documentation personally reviewed by record FUNCTIONAL STATUS: Premorbid: Independent with all activities of daily life as well as mobility On Admission: Min assist for ambulation, bed mobility, functional transfers, dressing, bathing GOALS: Mod-I community distances for ambulation, functional transfers, dressing, toileting, bathing ASSESSMENT:54-year-old M with past medical history of NF1 with multiple shunts who presents status post left frontal VPS infection s/p removal and replacement PLAN: 1. rehab- pt/ot advance gait and adls, strengthen/stretch/maintain ROM all 4limbs, fall recovery, dynamic balance training 2. 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 ID- c/u vanco and Levaquin until 03-03-20 then switch to doxycycline per ID recs for CSF cx + cutibacterium, will consider inhouse ID consult prn -f/u ID on d/c 4. cardiac- no known hx 5. resp- encourage incentive spirometry 6. GI- monitor for bowel obstruction, c/u regular diet -ppx protonix 7. DVT ppx- heparin 8. Pain- tylenol and oxycodone 9. dispo- tbd POST ADMISSION PHYSICIAN EVALUATION: Medical and functional status: Description of medical status, medical assessment : As above. Rehabilitation diagnosis and current and prior cold morbid medical conditions as above. Risk of complications and plans to mitigate them as above. Description of functional status current status is as above. Prior status as above. Status compared to preadmission: There are no clinically significant differences between the patient's current status and the information described on the preadmission screening document. Treatment plan anticipated: Treatment plan is as described above. Required disciplines including physical therapy, occupational therapy, others as noted above. Intensity of services: 3 hours a day, 6 days a week. Special considerations: There are no specific special or safety considerations that would likely preclude immediate implementation of an intensive reha bilitation program or subsequently influence the plan of care. ATTESTATION: Considering all the information above, it is my best judgment that this patient requires intensive rehabilitation therapy as described above and an inpatient hospital environment due to the complexity of nursing, medical, and rehabilitation needs required by the patient. Furthermore, this patient can reasonably be expected to participate in an benefit from an inpatient rehabilitation stay with an interdisciplinary team approach to the delivery of rehabilitation care under the direction and supervision of rehabilitation physician. PROGNOSIS: good ESTIMATED LENGTH OF STAY:12-16 days. PROJECTED DISCHARGE DESTINATION: Home with family support and any durable medical equipment required to increase functional safety and mobility. TIME SPENT COUNSELING AND COORDINATING INITIAL CARE: Greater than 70 minutes. Vital Signs Vital Signs Date Time Temp Pulse Resp B/P (MAP) Pulse Ox O2 Delivery O2 Flow Rate FiO2 02/26/20 17:30 97.9 80 18 120/75 (90) 98 Room Air Home Medications Scheduled Levofloxacin (Levofloxacin) 750 Mg Tablet, 750 MG PO DAILY, (Reported) Metoclopramide HCl (Metoclopramide HCl) 10 Mg/2 Ml Syringe, 10 MG IV Q6H, (Reported) Potassium Chloride (Potassium Chloride) 20 Meq Tablet.er, 40 MEQ PO DAILY, (Reported) Vancomycin/0.9 % Sod Chloride (Vanco 1.25 gm/250 ml-0.9% NaCl) 1.25 Gm/250 Ml Plast..bag, 1 INJ IV Q12H, (Reported) Scheduled PRN Acetaminophen (Acetaminophen ER) 650 Mg Tablet.er, 650 MG PO Q6H PRN for PAIN / FEVER, (Reported) Docusate Sodium (Docusate Sodium) 50 Mg/5 Ml Liquid, 100 MG PO DAILY PRN for CONSTIPATION, (Reported) Ondansetron HCl/Pf (Ondansetron HCl 4 mg/2 ml Vial) 4 Mg/2 Ml Vial, 4 MG IV Q6H PRN for NAUSEA OR VOMITING, (Reported) Allergies Coded Allergies: No Known Allergies (Unverified , 03/13/19) A-FIB/CHADSVASC A-FIB History Current/History of A-Fib/PAF?: No NATE GARCIA MD Feb 26, 2020 15:16
[2020-02-26] MEDS ORDERED: oxyCODONE 5MG TAB PO PRN (15:30)
[2020-02-26] MEDS ORDERED: ONDANSETRON 4 MG TAB PO PRN (15:30)
[2020-02-26] MEDS ORDERED: VANCOMYCIN HCL 1,250 MG in IV FLUID PLACE HOLDER 1 EA IV SCH (15:30)
[2020-02-26 17:30] VITALS: BP 120/75
[2020-02-26] MEDS ORDERED: VANC1.2510 IV (18:27)
[2020-02-26] MEDS ORDERED: DOCU5LIQ PO (18:27)
[2020-02-26] MEDS ORDERED: ONDA4INJ4 IV (18:27)
[2020-02-26] MEDS ORDERED: [UNRECOGNIZED DRUG - CODE] IV (18:27)
[2020-02-26] MEDS ORDERED: POTA1TAB14 PO (18:27)
[2020-02-26] MEDS ORDERED: LEVO750T13 PO (18:27)
[2020-02-26 20:00] VITALS: BP 112/67
[2020-02-26] MEDS: ACETAMINOPHEN 500 MG TAB PO SCH ×2 (21:00→21:57)
[2020-02-26] MEDS: SENNA 8.6 MG TAB (SENOKOT) PO SCH (21:00)
[2020-02-26] MEDS: DOCUSATE SODIUM 100 MG CAP PO SCH (21:00)
[2020-02-26] MEDS ORDERED: VANCOMYCIN HCL 750 MG, VIAL MATE ADAPTER 1 EACH in D5W 250 ML IV SCH (21:00)
[2020-02-26] MEDS: REMEDY PHYTOPLEX Z-GUARD PASTE 113GM TUBE (FROM STOREROOM PRODUCT) TOP SCH (21:00)
[2020-02-26] MEDS: POTASSIUM CHLORIDE 10 MEQ SR TABLET PO SCH (21:56)
[2020-02-26] MEDS: LACTOBACILLUS ACIDOPHILUS CAP (BACID) PO SCH (21:56)
[2020-02-26] MEDS: HEPARIN SOD (PORCINE) 5000UNITS/ML 1ML VIAL/SYRINGE SQ SCH (21:58)
[2020-02-26] MEDS ORDERED: VANCOMYCIN HCL 500 MG in D5W MINI-BAG PLUS 100 ML IV SCH (22:00)
[2020-02-27] MEDS: LevoFLOXacin 750 MG TABLET PO SCH (05:55)
[2020-02-27 06:00] VITALS: BP 125/78
[2020-02-27 06:33] LABS: BASO % 0.5 % (0.0-1.0); EOS # 0.2 10^3/uL (0.0-0.5); EOS % 3.6 % (0.0-3.0); HEMATOCRIT 40.9 % (42.0-52.0); HEMOGLOBIN 13.8 g/dl (13.5-17.5); LYMPH # 0.9 10^3/uL (1.5-5.0); LYMPH % 15.9 % (24.0-44.0); MEAN CORPUSCULAR HEMOGLOBIN 30.6 pg (27.0-33.0); MEAN CORPUSCULAR HGB CONC 33.7 g/dl (32.0-36.5); MEAN CORPUSCULAR VOLUME 90.7 fl (80.0-96.0); MONO # 0.6 10^3/uL (0.0-0.8); MONO % 10.7 % (0.0-5.0); NEUTROPHILS # 3.8 10^3/uL (1.5-8.5); NEUTROPHILS % 68.4 % (36.0-66.0); PLATELET COUNT, AUTOMATED 206 10^3/uL (150-450); RED BLOOD COUNT 4.51 10^6/uL (4.30-6.10); WHITE BLOOD COUNT 5.6 10^3/uL (4.0-10.0)
[2020-02-27 07:04] LABS: ALBUMIN 2.6 GM/DL (3.2-5.2); ALT/SGPT 20 U/L (12-78); BILIRUBIN,TOTAL 0.7 MG/DL (0.2-1.0); BLOOD UREA NITROGEN 11 MG/DL (7-18); CALCIUM LEVEL 8.8 MG/DL (8.5-10.1); CARBON DIOXIDE LEVEL 26 MEQ/L (21-32); CHLORIDE LEVEL 108 MEQ/L (98-107); CREATININE FOR GFR 0.79 MG/DL (0.70-1.30); GLOMERULAR FILTRATION RATE > 60.0 (>56); GLUCOSE, FASTING 89 MG/DL (70-100); POTASSIUM SERUM 4.4 MEQ/L (3.5-5.1); SODIUM LEVEL 140 MEQ/L (136-145); TOTAL PROTEIN 5.9 GM/DL (6.4-8.2)
[2020-02-27 08:51] LABS: VANCOMYCIN RANDOM 17.3 UG/ML
[2020-02-27] MEDS: ACETAMINOPHEN 500 MG TAB PO SCH ×3 (09:00→20:33)
[2020-02-27] MEDS: DOCUSATE SODIUM 100 MG CAP PO SCH ×3 (09:00→20:32)
[2020-02-27] MEDS: REMEDY PHYTOPLEX Z-GUARD PASTE 113GM TUBE (FROM STOREROOM PRODUCT) TOP SCH ×3 (09:00→20:33)
[2020-02-27] MEDS: LACTOBACILLUS ACIDOPHILUS CAP (BACID) PO SCH ×3 (09:44→20:31)
[2020-02-27] MEDS: PANTOPRAZOLE 40MG TAB (PROTONIX) PO SCH (09:45)
[2020-02-27] MEDS: POTASSIUM CHLORIDE 10 MEQ SR TABLET PO SCH ×2 (09:45→20:31)
[2020-02-27] MEDS: HEPARIN SOD (PORCINE) 5000UNITS/ML 1ML VIAL/SYRINGE SQ SCH ×2 (09:46→20:32)
[2020-02-27 14:00] VITALS: BP 100/61
[2020-02-27] MEDS ORDERED: VANCOMYCIN HCL 750 MG, VIAL MATE ADAPTER 1 EACH in D5W 250 ML IV ONE (14:30)
--- NOTE | 2020-02-27 18:31 | CR.PDOC ---
General Date of Consultation: Feb 27, 2020 Referring Provider: NATE GARCIA MD Attending Physician: NOEMÍ PURI DO Consultation REASON FOR CONSULTATION/CHIEF COMPLAINT: Co-medical management HISTORY OF PRESENT ILLNESS: Mr. 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 on 02/10/2020 for an i nfected left frontal VPS. Today when I saw he was feeling well. He denies any fever, chills, lightheadedness/dizziness, sore throat, shortness of breath, cough, chest pain, abdominal pain, diarrhea, dysuria or neuropathy. He did see that his neck felt stiff. He said that was secondary to sitting up in the chair for a long period of time. He is able to touch his chin to the chest without any problems. ALLERGIES: Please see below. HOME MEDICATIONS: Please see below. PAST MEDICAL HISTORY: 1. Neurofibromatosis type I.. 2. Hydrocephalus. PAST SURGICAL HISTORY: 1. Shunt placement 2 2., Left adrenalectomy FAMILY HISTORY: He tells me that he does not know any medical history of his parents. Denies cancer, diabetes, or thyroid issues in parents SOCIAL HISTORY: He denies ever smoking. Denies drinking. Denies recreational drug use. REVIEW OF SYSTEMS: CONSTITUTIONAL: Denies any fever or chills. Denies lightheadedness or dizziness. ENT: Denies rhinorrhea. Denies sore throat. Denies dysphagia. RESPIRATORY: Denies shortness of breath. Denies cough. CARDIOVASCULAR: Denies chest pain. Denies palpitations. GASTROINTESTINAL: Denies abdominal pain. Denies diarrhea. Denies constipation GENITOURINARY: Denies dysuria. CUTANEOUS: Denies rashes. MUSCULOSKELETAL: Denies muscle weakness. NEUROLOGICAL: Denies neuropathy. Denies paresthesias. PSYCHOLOGICAL: Denies anxiety. Denies depression. PHYSICAL EXAMINATION: VITAL SIGNS: Please see below. GENERAL: Comfortable, in no apparent distress. HEENT: Multiple surgical scars on head, EOMI, sclera clear. NECK: Supple RESPIRATORY: Lungs clear to auscultation bilaterally, no rales, wheeze or rhonchi. CARDIOVASCULAR: Regular rate and rhythm. ABDOMEN: Soft, nontender, no guarding or rebound tenderness. Normal bowel sounds. MUSCLE SKELETAL: Muscle strength 5/5 in all extremities. NEUROLOGICAL: CN 312 grossly intact, no focal deficits noted. PSYCHOLOGICAL: Normal mood and affect LABORATORY DATA: Please see below. ASSESSMENT/PLAN: 1. Debility. Currently in AIU for rehabilitation. 2. Hydrocephalus. Had multiple shunts. Most recent in [facility] on 02/24/2020. He is to follow- up in neurosurgery in 3 weeks for suture removal. Head of bed 45 3. Infected shunt. Continue vancomycin and Levaquin until 03/03/2020 then switch to doxycycline per ID recs follow with ID and discharge. 4. DVT prophylaxis. Heparin Vital Signs/I&O Vital Signs Date Time Temp Pulse Resp B/P (MAP) Pulse Ox O2 Delivery O2 Flow Rate FiO2 02/27/20 14:00 98.0 90 18 100/61 (74) 96 Room Air I&O- Last 24 Hours up to 6 AM 02/27/20 06:00 Intake Total 715 ml Output Total 1365 ml Balance -650 ml Laboratory Data Labs 24H Laboratory Tests 2 02/27/20 06:18: Immature Granulocyte % (Auto) 0.9, Neutrophils (%) (Auto) 68.4H, Lymphocytes (%) (Auto) 15.9L, Monocytes (%) (Auto) 10.7H, Eosinophils (%) (Auto) 3.6H, Basophils (%) (Auto) 0.5, Neutrophils # (Auto) 3.8, Lymphocytes # (Auto) 0.9L, Monocytes # (Auto) 0.6, Eosinophils # (Auto) 0.2, Basophils # (Auto) 0.0, Nucleated Red Blood Cells % (auto) 0.0, Anion Gap 6L, Glomerular Filtration Rate > 60.0, Calcium Level 8.8, Total Bilirubin 0.7, Aspartate Amino Transf (AST/SGOT) 11, Alanine Aminotransferase (ALT/SGPT) 20, Alkaline Phosphatase 85, Total Protein 5.9L, Albumin 2.6L, Albumin/Globulin Ratio 0.8, Random Vancomycin Level 17.3 CBC/BMP Laboratory Tests 02/27/20 06:18 Allergies Coded Allergies: No Known Allergies (Unverified , 03/13/19) Home Medications Scheduled Levofloxacin (Levofloxacin) 750 Mg Tablet, 750 MG PO DAILY, (Reported) Metoclopramide HCl (Metoclopramide HCl) 10 Mg/2 Ml Syringe, 10 MG IV Q6H, (Reported) Potassium Chloride (Potassium Chloride) 20 Meq Tablet.er, 40 MEQ PO DAILY, (Reported) Vancomycin/0.9 % Sod Chloride (Vanco 1.25 gm/250 ml-0.9% NaCl) 1.25 Gm/250 Ml Plast..bag, 1 INJ IV Q12H, (Reported) Scheduled PRN Acetaminophen (Acetaminophen ER) 650 Mg Tablet.er, 650 MG PO Q6H PRN for PAIN / FEVER, (Reported) Docusate Sodium (Docusate Sodium) 50 Mg/5 Ml Liquid, 100 MG PO DAILY PRN for CONSTIPATION, (Reported) Ondansetron HCl/Pf (Ondansetron HCl 4 mg/2 ml Vial) 4 Mg/2 Ml Vial, 4 MG IV Q6H PRN for NAUSEA OR VOMITING, (Reported) NOEMÍ PURI DO Feb 27, 2020 18:31
[2020-02-27 20:00] VITALS: BP 112/62
[2020-02-27] MEDS: VANCOMYCIN HCL 750 MG, VIAL MATE ADAPTER 1 EACH in D5W 250 ML IV SCH (20:26)
[2020-02-27] MEDS: SENNA 8.6 MG TAB (SENOKOT) PO SCH (20:31)
[2020-02-27] MEDS: SODIUM CHLORIDE 0.9% INJ 10 ML SYR IV SCH (20:40)
[2020-02-27] MEDS: VANCOMYCIN HCL 500 MG in D5W MINI-BAG PLUS 100 ML IV SCH (21:31)
[2020-02-28] MEDS: LevoFLOXacin 750 MG TABLET PO SCH (06:00)
[2020-02-28] MEDS: SODIUM CHLORIDE 0.9% INJ 10 ML SYR IV SCH ×2 (06:02→17:25)
[2020-02-28 06:04] VITALS: BP 110/69
[2020-02-28 06:55] LABS: BASO % 0.7 % (0.0-1.0); EOS # 0.2 10^3/uL (0.0-0.5); EOS % 3.3 % (0.0-3.0); HEMATOCRIT 41.9 % (42.0-52.0); HEMOGLOBIN 13.9 g/dl (13.5-17.5); LYMPH # 0.8 10^3/uL (1.5-5.0); LYMPH % 13.2 % (24.0-44.0); MEAN CORPUSCULAR HEMOGLOBIN 30.7 pg (27.0-33.0); MEAN CORPUSCULAR HGB CONC 33.2 g/dl (32.0-36.5); MEAN CORPUSCULAR VOLUME 92.5 fl (80.0-96.0); MONO # 0.7 10^3/uL (0.0-0.8); MONO % 11.8 % (0.0-5.0); NEUTROPHILS # 4.2 10^3/uL (1.5-8.5); NEUTROPHILS % 69.8 % (36.0-66.0); PLATELET COUNT, AUTOMATED 213 10^3/uL (150-450); RED BLOOD COUNT 4.53 10^6/uL (4.30-6.10)
[2020-02-28 07:15] LABS: BLOOD UREA NITROGEN 11 MG/DL (7-18); CALCIUM LEVEL 9.2 MG/DL (8.5-10.1); CARBON DIOXIDE LEVEL 27 MEQ/L (21-32); CHLORIDE LEVEL 106 MEQ/L (98-107); CREATININE FOR GFR 0.86 MG/DL (0.70-1.30); GLOMERULAR FILTRATION RATE > 60.0 (>56); GLUCOSE, FASTING 88 MG/DL (70-100); POTASSIUM SERUM 4.1 MEQ/L (3.5-5.1); SODIUM LEVEL 139 MEQ/L (136-145)
[2020-02-28] MEDS: REMEDY PHYTOPLEX Z-GUARD PASTE 113GM TUBE (FROM STOREROOM PRODUCT) TOP SCH ×3 (07:15→20:28)
[2020-02-28] MEDS: ACETAMINOPHEN 500 MG TAB PO SCH ×3 (07:15→20:27)
[2020-02-28] MEDS: LACTOBACILLUS ACIDOPHILUS CAP (BACID) PO SCH ×3 (07:19→20:27)
[2020-02-28] MEDS: HEPARIN SOD (PORCINE) 5000UNITS/ML 1ML VIAL/SYRINGE SQ SCH ×2 (07:19→20:27)
[2020-02-28] MEDS: VANCOMYCIN HCL 750 MG, VIAL MATE ADAPTER 1 EACH in D5W 250 ML IV SCH ×2 (07:19→21:29)
[2020-02-28] MEDS: PANTOPRAZOLE 40MG TAB (PROTONIX) PO SCH (07:20)
[2020-02-28] MEDS: POTASSIUM CHLORIDE 10 MEQ SR TABLET PO SCH ×2 (07:23→20:27)
[2020-02-28] MEDS: DOCUSATE SODIUM 100 MG CAP PO SCH ×2 (07:24→20:27)
[2020-02-28] MEDS: VANCOMYCIN HCL 500 MG in D5W MINI-BAG PLUS 100 ML IV SCH ×2 (08:32→19:21)
[2020-02-28] MEDS: SODIUM CHLORIDE 0.9% INJ 10 ML SYR IV PRN ×2 (09:42→21:01)
--- NOTE | 2020-02-28 13:57 | IPNPDOC ---
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 REVIEW OF SYSTEMS: The following is a completed review of systems and has been reviewed. Review of systems otherwise unremarkable. PAIN: Patient self reports no pain EYES: No recent vision changes EARS, NOSE, & THROAT: No throat pain, or dysphagia, or rhinorrhea CARDIOVASCULAR: Denies chest pain or palpitations PULMONARY: Denies shortness of breath GASTROINTESTINAL: Denies constipation/diarrhea GENITOURINARY: denies dysuria MUSCULOSKELETAL: generalized weakness NEUROLOGICAL: +ataxia HEMATOLOGICAL: denies easy bruising SKIN: abdominal incisions and left frontal scalp incisions PSYCHIATRIC: Unremarkable All other review of systems found to be negative. PHYSICAL EXAMINATION: VITAL SIGNS: Please see below. GENERAL: Pleasant and cooperative. No acute distress. HEENT: PERRL. Extraocular movements intact. Clear conjunctiva CARDIOVASCULAR: Regular rate and rhythm. No murmurs, rubs, or gallops LUNGS: Clear to auscultation bilaterally. No wheezes. No rhonchi ABDOMEN: Soft, nontender, nondistended. Normal active bowel sounds, healing laparoscopic incisions NEUROLOGICAL: Alert and oriented times three. Cranial nerves II through XII grossly intact. Sensation grossly intact] +ataxia EXTREMITIES: 5\5 strength bilateral upper extremities. 5\5 strength right lower extremity. 5/5 strength in left lower extremity. 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 rehab- pt/ot advance gait and adls, strengthen/stretch/maintain ROM all 4limbs, fall recovery, dynamic balance training 2. 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 ID- c/u vanco and Levaquin until 03-03-20 then switch to doxycycline per ID recs for CSF cx + cutibacterium, will consider inhouse ID consult prn -f/u ID on d/c 4. cardiac- no known hx 5. resp- encourage incentive spirometry 6. GI- monitor for bowel obstruction, c/u regular diet- abdominal exam benign -ppx protonix 7. DVT ppx- heparin 8. Pain- tylenol and oxycodone 9. dispo- tbd Allergies Coded Allergies: No Known Allergies (Unverified , 03/13/19) Vital Signs Vital Signs Date Time Temp Pulse Resp B/P (MAP) Pulse Ox O2 Delivery O2 Flow Rate FiO2 02/28/20 06:04 98.3 65 16 110/69 (83) 95 Room Air Laboratory Data CBC/BMP Laboratory Tests 02/28/20 06:26 Labs 24H Laboratory Tests 2 02/28/20 06:26: Immature Granulocyte % (Auto) 1.2, Neutrophils (%) (Auto) 69.8H, Lymphocytes (%) (Auto) 13.2L, Monocytes (%) (Auto) 11.8H, Eosinophils (%) (Auto) 3.3H, Basophils (%) (Auto) 0.7, Neutrophils # (Auto) 4.2, Lymphocytes # (Auto) 0.8L, Monocytes # (Auto) 0.7, Eosinophils # (Auto) 0.2, Basophils # (Auto) 0.0, Nucleated Red Blood Cells % (auto) 0.0, Anion Gap 6L, Glomerular Filtration Rate > 60.0, Calcium Level 9.2 Current Medications Current Medications Current Medications Medications (Trade) Dose Ordered Sig/Carito Route PRN Reason Start Time Stop Time Status Last Admin Dose Admin Acetaminophen (Tylenol Tab) 1,000 mg TID PO 02/26/20 21:00 Docusate Sodium (Colace) 100 mg BID PO 02/26/20 21:00 02/27/20 20:32 Doxycycline Hyclate (Vibramycin) 100 mg BID PO 03/04/20 21:00 Heparin Sodium (Heparin (Flush)) 200 units ASDIRECTED PRN IV SEE LABEL COMMENTS 02/27/20 16:45 02/28/20 09:42 Heparin Sodium (Heparin (Flush)) 200 units PICC IV 02/27/20 18:00 02/28/20 06:02 Heparin Sodium (Porcine) (Heparin) 5,000 units BID SQ 02/26/20 21:00 02/28/20 07:19 Home Med (Med Rec Complete!) ASDIRECTED XX 02/26/20 18:30 02/26/20 18:31 DC Lactobacillus Acidophilus (Bacid) 1 ea TID PO 02/26/20 21:00 02/28/20 07:19 Levofloxacin (Levaquin) 750 mg DAILY@06 PO 02/27/20 06:00 03/03/20 21:00 02/28/20 06:00 Ondansetron HCl (Zofran) 4 mg Q6HP PRN PO NAUSEA 02/26/20 15:30 Oxycodone HCl (Roxicodone, Oxyir) 5 mg Q4HP PRN PO PAIN 02/26/20 15:30 Pantoprazole Sodium (Protonix) 40 mg DAILY PO 02/27/20 09:00 02/28/20 07:20 Potassium Chloride (Micro-K Extencaps) 20 meq BID PO 02/26/20 21:00 02/28/20 07:23 Senna (Senokot) 1 tab QHS PO 02/26/20 21:00 02/27/20 20:31 Sodium Chloride (Saline Lock Flush) 10 ml ASDIRECTED PRN IV SEE LABEL COMMENTS 02/27/20 16:45 02/28/20 09:42 Sodium Chloride (Saline Lock Flush) 10 ml PICC IV 02/27/20 18:00 02/28/20 06:02 Vancomycin HCl 500 mg/Dextrose 110 ml @ 110 mls/hr Q12H IV 02/26/20 22:00 02/27/20 14:35 DC 02/26/20 23:13 Vancomycin HCl 500 mg/Dextrose 110 ml @ 110 mls/hr Q12H IV 02/27/20 21:00 03/03/20 23:59 02/28/20 08:32 Vancomycin HCl 750 mg/IV Miscellaneous Supplies 1 each/ Dextrose 275 ml @ 275 mls/hr Q12H IV 02/26/20 21:00 02/27/20 14:35 DC 02/26/20 21:53 Vancomycin HCl 750 mg/IV Miscellaneous Supplies 1 each/ Dextrose 275 ml @ 275 mls/hr Q12H IV 02/27/20 20:00 03/03/20 23:59 02/28/20 07:19 Vancomycin HCl 1250 mg/IV Miscellaneous Supplies 25 ml @ 25 mls/hr Q12H IV 02/26/20 15:30 02/26/20 19:54 DC NATE GARCIA MD Feb 28, 2020 13:57
[2020-02-28 14:00] VITALS: BP 117/69
[2020-02-28 20:00] VITALS: BP 119/73
[2020-02-28] MEDS: SENNA 8.6 MG TAB (SENOKOT) PO SCH (20:27)
[2020-02-29 05:07] VITALS: BP 123/74
[2020-02-29] MEDS: LevoFLOXacin 750 MG TABLET PO SCH (05:22)
[2020-02-29] MEDS: SODIUM CHLORIDE 0.9% INJ 10 ML SYR IV SCH ×2 (06:50→08:00)
[2020-02-29] MEDS: DOCUSATE SODIUM 100 MG CAP PO SCH ×2 (08:00→21:26)
[2020-02-29] MEDS: VANCOMYCIN HCL 750 MG, VIAL MATE ADAPTER 1 EACH in D5W 250 ML IV SCH ×2 (08:00→17:34)
[2020-02-29] MEDS: LACTOBACILLUS ACIDOPHILUS CAP (BACID) PO SCH ×3 (08:01→21:26)
[2020-02-29] MEDS: PANTOPRAZOLE 40MG TAB (PROTONIX) PO SCH (08:01)
[2020-02-29] MEDS: HEPARIN SOD (PORCINE) 5000UNITS/ML 1ML VIAL/SYRINGE SQ SCH ×2 (08:01→21:26)
[2020-02-29] MEDS: ACETAMINOPHEN 500 MG TAB PO SCH ×3 (08:02→21:00)
[2020-02-29] MEDS: POTASSIUM CHLORIDE 10 MEQ SR TABLET PO SCH ×2 (08:02→21:27)
[2020-02-29] MEDS: REMEDY PHYTOPLEX Z-GUARD PASTE 113GM TUBE (FROM STOREROOM PRODUCT) TOP SCH ×3 (08:02→21:00)
[2020-02-29] MEDS: VANCOMYCIN HCL 500 MG in D5W MINI-BAG PLUS 100 ML IV SCH ×2 (10:38→19:04)
--- NOTE | 2020-02-29 11:48 | IPNPDOC ---
PM&R Progress Note DATE OF SERVICE: Feb 29, 2020 [employer] Progress Note Subjective: Patient seen in the gym playing paddle ball, working on dynamic balance training, no complaints. REVIEW OF SYSTEMS: The following is a completed review of systems and has been reviewed. Review of systems otherwise unremarkable. PAIN: Patient self reports no pain EYES: No recent vision changes EARS, NOSE, & THROAT: No throat pain, or dysphagia, or rhinorrhea CARDIOVASCULAR: Denies chest pain or palpitations PULMONARY: Denies shortness of breath GASTROINTESTINAL: Denies constipation/diarrhea GENITOURINARY: denies dysuria MUSCULOSKELETAL: generalized weakness NEUROLOGICAL: +ataxia HEMATOLOGICAL: denies easy bruising SKIN: abdominal incisions and left frontal scalp incisions PSYCHIATRIC: Unremarkable All other review of systems found to be negative. PHYSICAL EXAMINATION: VITAL SIGNS: Please see below. GENERAL: Pleasant and cooperative. No acute distress. HEENT: PERRL. Extraocular movements intact. Clear conjunctiva CARDIOVASCULAR: Regular rate and rhythm. No murmurs, rubs, or gallops LUNGS: Clear to auscultation bilaterally. No wheezes. No rhonchi ABDOMEN: Soft, nontender, nondistended. Normal active bowel sounds, healing laparoscopic incisions NEUROLOGICAL: Alert and oriented times three. Cranial nerves II through XII grossly intact. Sensation grossly intact] +ataxia EXTREMITIES: 5\5 strength bilateral upper extremities. 5\5 strength right lower extremity. 5/5 strength in left lower extremity. 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 rehab- pt/ot advance gait and adls, strengthen/stretch/maintain ROM all 4limbs, fall recovery, dynamic balance training 2. 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 ID- c/u vanco and Levaquin until 03-03-20 then switch to doxycycline per ID recs for CSF cx + cutibacterium, will consider inhouse ID consult prn -f/u ID on d/c 4. cardiac- no known hx 5. resp- encourage incentive spirometry 6. GI- monitor for bowel obstruction, c/u regular diet- abdominal exam benign -ppx protonix 7. DVT ppx- heparin 8. Pain- tylenol and oxycodone 9. dispo- tbd Allergies Coded Allergies: No Known Allergies (Unverified , 03/13/19) Vital Signs Vital Signs Date Time Temp Pulse Resp B/P (MAP) Pulse Ox O2 Delivery O2 Flow Rate FiO2 02/29/20 05:07 98.0 61 18 123/74 (90) 97 Room Air Laboratory Data Labs 24H Laboratory Tests 2 02/29/20 06:52: Vancomycin Level Trough 16.7 Current Medications Current Medications Current Medications Medications (Trade) Dose Ordered Sig/Carito Route PRN Reason Start Time Stop Time Status Last Admin Dose Admin Acetaminophen (Tylenol Tab) 1,000 mg TID PO 02/26/20 21:00 Docusate Sodium (Colace) 100 mg BID PO 02/26/20 21:00 02/29/20 08:00 Doxycycline Hyclate (Vibramycin) 100 mg BID PO 03/04/20 21:00 Heparin Sodium (Heparin (Flush)) 200 units ASDIRECTED PRN IV SEE LABEL COMMENTS 02/27/20 16:45 02/28/20 21:01 Heparin Sodium (Heparin (Flush)) 200 units PICC IV 02/27/20 18:00 02/29/20 08:00 Heparin Sodium (Porcine) (Heparin) 5,000 units BID SQ 02/26/20 21:00 02/29/20 08:01 Home Med (Med Rec Complete!) ASDIRECTED XX 02/26/20 18:30 02/26/20 18:31 DC Lactobacillus Acidophilus (Bacid) 1 ea TID PO 02/26/20 21:00 02/29/20 08:01 Levofloxacin (Levaquin) 750 mg DAILY@06 PO 02/27/20 06:00 03/03/20 21:00 02/29/20 05:22 Ondansetron HCl (Zofran) 4 mg Q6HP PRN PO NAUSEA 02/26/20 15:30 Oxycodone HCl (Roxicodone, Oxyir) 5 mg Q4HP PRN PO PAIN 02/26/20 15:30 Pantoprazole Sodium (Protonix) 40 mg DAILY PO 02/27/20 09:00 02/29/20 08:01 Potassium Chloride (Micro-K Extencaps) 20 meq BID PO 02/26/20 21:00 02/29/20 08:02 Senna (Senokot) 1 tab QHS PO 02/26/20 21:00 02/28/20 20:27 Sodium Chloride (Saline Lock Flush) 10 ml ASDIRECTED PRN IV SEE LABEL COMMENTS 02/27/20 16:45 02/28/20 21:01 Sodium Chloride (Saline Lock Flush) 10 ml PICC IV 02/27/20 18:00 02/29/20 08:00 Vancomycin HCl 500 mg/Dextrose 110 ml @ 110 mls/hr Q12H IV 02/26/20 22:00 02/27/20 14:35 DC 02/26/20 23:13 Vancomycin HCl 500 mg/Dextrose 110 ml @ 110 mls/hr Q12H IV 02/27/20 21:00 02/29/20 10:55 DC 02/29/20 10:38 Vancomycin HCl 500 mg/Dextrose 110 ml @ 110 mls/hr Q12H IV 02/29/20 19:00 03/03/20 23:59 Vancomycin HCl 750 mg/IV Miscellaneous Supplies 1 each/ Dextrose 275 ml @ 275 mls/hr Q12H IV 02/26/20 21:00 02/27/20 14:35 DC 02/26/20 21:53 Vancomycin HCl 750 mg/IV Miscellaneous Supplies 1 each/ Dextrose 275 ml @ 275 mls/hr Q12H IV 02/27/20 20:00 02/29/20 10:52 DC 02/29/20 08:00 Vancomycin HCl 750 mg/IV Miscellaneous Supplies 1 each/ Dextrose 275 ml @ 275 mls/hr Q12H IV 02/29/20 18:00 03/03/20 23:59 Vancomycin HCl 1250 mg/IV Miscellaneous Supplies 25 ml @ 25 mls/hr Q12H IV 02/26/20 15:30 02/26/20 19:54 NATE HARP MD Feb 29, 2020 11:48
[2020-02-29 14:00] VITALS: BP 118/70
[2020-02-29 20:30] VITALS: BP 111/69
[2020-02-29] MEDS: SENNA 8.6 MG TAB (SENOKOT) PO SCH (21:26)
[2020-02-29] MEDS: SODIUM CHLORIDE 0.9% INJ 10 ML SYR IV PRN (21:29)
[2020-03-01] MEDS: LevoFLOXacin 750 MG TABLET PO SCH (05:34)
[2020-03-01] MEDS: VANCOMYCIN HCL 750 MG, VIAL MATE ADAPTER 1 EACH in D5W 250 ML IV SCH ×2 (05:34→17:15)
[2020-03-01 06:00] VITALS: BP 109/76
[2020-03-01] MEDS: SODIUM CHLORIDE 0.9% INJ 10 ML SYR IV SCH ×2 (06:00→17:22)
[2020-03-01 06:03] LABS: BASO % 0.4 % (0.0-1.0); EOS # 0.3 10^3/uL (0.0-0.5); HEMATOCRIT 44.3 % (42.0-52.0); HEMOGLOBIN 14.7 g/dl (13.5-17.5); LYMPH # 0.8 10^3/uL (1.5-5.0); LYMPH % 16.8 % (24.0-44.0); MEAN CORPUSCULAR HEMOGLOBIN 30.4 pg (27.0-33.0); MEAN CORPUSCULAR HGB CONC 33.2 g/dl (32.0-36.5); MEAN CORPUSCULAR VOLUME 91.5 fl (80.0-96.0); MONO # 0.6 10^3/uL (0.0-0.8); MONO % 12.2 % (0.0-5.0); NEUTROPHILS # 3.1 10^3/uL (1.5-8.5); NEUTROPHILS % 62.8 % (36.0-66.0); PLATELET COUNT, AUTOMATED 207 10^3/uL (150-450); RED BLOOD COUNT 4.84 10^6/uL (4.30-6.10)
[2020-03-01 06:23] LABS: BLOOD UREA NITROGEN 14 MG/DL (7-18); CALCIUM LEVEL 9.3 MG/DL (8.5-10.1); CARBON DIOXIDE LEVEL 29 MEQ/L (21-32); CHLORIDE LEVEL 105 MEQ/L (98-107); GLOMERULAR FILTRATION RATE > 60.0 (>56); GLUCOSE, FASTING 88 MG/DL (70-100); POTASSIUM SERUM 4.5 MEQ/L (3.5-5.1); SODIUM LEVEL 138 MEQ/L (136-145)
[2020-03-01] MEDS: VANCOMYCIN HCL 500 MG in D5W MINI-BAG PLUS 100 ML IV SCH ×2 (06:56→20:08)
[2020-03-01] MEDS: ACETAMINOPHEN 500 MG TAB PO SCH ×3 (09:00→20:09)
[2020-03-01] MEDS: REMEDY PHYTOPLEX Z-GUARD PASTE 113GM TUBE (FROM STOREROOM PRODUCT) TOP SCH ×3 (09:00→20:09)
[2020-03-01] MEDS: LACTOBACILLUS ACIDOPHILUS CAP (BACID) PO SCH ×3 (10:23→20:08)
[2020-03-01] MEDS: DOCUSATE SODIUM 100 MG CAP PO SCH ×2 (10:24→20:08)
[2020-03-01] MEDS: PANTOPRAZOLE 40MG TAB (PROTONIX) PO SCH (10:24)
[2020-03-01] MEDS: POTASSIUM CHLORIDE 10 MEQ SR TABLET PO SCH ×2 (10:24→20:09)
[2020-03-01] MEDS: HEPARIN SOD (PORCINE) 5000UNITS/ML 1ML VIAL/SYRINGE SQ SCH ×2 (10:24→20:10)
--- NOTE | 2020-03-01 11:31 | IPNPDOC ---
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 He has no complaints. REVIEW OF SYSTEMS: The following is a completed review of systems and has been reviewed. Review of systems otherwise unremarkable. PAIN: Patient self reports no pain EYES: No recent vision changes EARS, NOSE, & THROAT: No throat pain, or dysphagia, or rhinorrhea CARDIOVASCULAR: Denies chest pain or palpitations PULMONARY: Denies shortness of breath GASTROINTESTINAL: Denies constipation/diarrhea GENITOURINARY: denies dysuria MUSCULOSKELETAL: generalized weakness NEUROLOGICAL: +ataxia (improving) HEMATOLOGICAL: denies easy bruising SKIN: abdominal incisions and left frontal scalp incisions PSYCHIATRIC: Unremarkable All other review of systems found to be negative. PHYSICAL EXAMINATION: VITAL SIGNS: Please see below. GENERAL: Pleasant and cooperative. No acute distress. HEENT: PERRL. Extraocular movements intact. Clear conjunctiva CARDIOVASCULAR: Regular rate and rhythm. No murmurs, rubs, or gallops LUNGS: Clear to auscultation bilaterally. No wheezes. No rhonchi ABDOMEN: Soft, nontender, nondistended. Normal active bowel sounds, healing laparoscopic incisions NEUROLOGICAL: Alert and oriented times three. Cranial nerves II through XII grossly intact. Sensation grossly intact] +ataxia EXTREMITIES: 5\5 strength bilateral upper extremities. 5\5 strength right lower extremity. 5/5 strength in left lower extremity. 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 rehab- pt/ot advance gait and adls, strengthen/stretch/maintain ROM all 4limbs, fall recovery, dynamic balance training 2. 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 ID- c/u vanco and Levaquin until 03-03-20 then switch to doxycycline per ID recs for CSF cx + cutibacterium, will consider inhouse ID consult prn -f/u ID on d/c 4. cardiac- no known hx 5. resp- encourage incentive spirometry 6. GI- monitor for bowel obstruction, c/u regular diet- abdominal exam benign -ppx protonix 7. DVT ppx- heparin 8. Pain- tylenol and oxycodone 9. dispo- next week, progressing towards goalls Allergies Coded Allergies: No Known Allergies (Unverified , 03/13/19) Vital Signs Vital Signs Date Time Temp Pulse Resp B/P (MAP) Pulse Ox O2 Delivery O2 Flow Rate FiO2 03/01/20 06:00 96.9 70 19 109/76 (87) 97 Room Air Laboratory Data CBC/BMP Laboratory Tests 03/01/20 05:45 Labs 24H Laboratory Tests 2 03/01/20 05:45: Immature Granulocyte % (Auto) 1.8, Neutrophils (%) (Auto) 62.8, Lymphocytes (%) (Auto) 16.8L, Monocytes (%) (Auto) 12.2H, Eosinophils (%) (Auto) 6.0H, Basophils (%) (Auto) 0.4, Neutrophils # (Auto) 3.1, Lymphocytes # (Auto) 0.8L, Monocytes # (Auto) 0.6, Eosinophils # (Auto) 0.3, Basophils # (Auto) 0.0, Nucleated Red Blood Cells % (auto) 0.0, Anion Gap 4L, Glomerular Filtration Rate > 60.0, Calcium Level 9.3 Current Medications Current Medications Current Medications Medications (Trade) Dose Ordered Sig/Carito Route PRN Reason Start Time Stop Time Status Last Admin Dose Admin Acetaminophen (Tylenol Tab) 1,000 mg TID PO 02/26/20 21:00 Docusate Sodium (Colace) 100 mg BID PO 02/26/20 21:00 03/01/20 10:24 Doxycycline Hyclate (Vibramycin) 100 mg BID PO 03/04/20 21:00 Heparin Sodium (Heparin (Flush)) 200 units ASDIRECTED PRN IV SEE LABEL COMMENTS 02/27/20 16:45 02/29/20 21:29 Heparin Sodium (Heparin (Flush)) 200 units PICC IV 02/27/20 18:00 02/29/20 08:00 Heparin Sodium (Porcine) (Heparin) 5,000 units BID SQ 02/26/20 21:00 03/01/20 10:24 Home Med (Med Rec Complete!) ASDIRECTED XX 02/26/20 18:30 02/26/20 18:31 DC Lactobacillus Acidophilus (Bacid) 1 ea TID PO 02/26/20 21:00 03/01/20 10:23 Levofloxacin (Levaquin) 750 mg DAILY@06 PO 02/27/20 06:00 03/03/20 21:00 03/01/20 05:34 Ondansetron HCl (Zofran) 4 mg Q6HP PRN PO NAUSEA 02/26/20 15:30 Oxycodone HCl (Roxicodone, Oxyir) 5 mg Q4HP PRN PO PAIN 02/26/20 15:30 Pantoprazole Sodium (Protonix) 40 mg DAILY PO 02/27/20 09:00 03/01/20 10:24 Potassium Chloride (Micro-K Extencaps) 20 meq BID PO 02/26/20 21:00 03/01/20 10:24 Senna (Senokot) 1 tab QHS PO 02/26/20 21:00 02/29/20 21:26 Sodium Chloride (Saline Lock Flush) 10 ml ASDIRECTED PRN IV SEE LABEL COMMENTS 02/27/20 16:45 02/29/20 21:29 Sodium Chloride (Saline Lock Flush) 10 ml PICC IV 02/27/20 18:00 02/29/20 08:00 Vancomycin HCl 500 mg/Dextrose 110 ml @ 110 mls/hr Q12H IV 02/26/20 22:00 02/27/20 14:35 DC 02/26/20 23:13 Vancomycin HCl 500 mg/Dextrose 110 ml @ 110 mls/hr Q12H IV 02/27/20 21:00 02/29/20 10:55 DC 02/29/20 10:38 Vancomycin HCl 500 mg/Dextrose 110 ml @ 110 mls/hr Q12H IV 02/29/20 19:00 03/03/20 23:59 03/01/20 06:56 Vancomycin HCl 750 mg/IV Miscellaneous Supplies 1 each/ Dextrose 275 ml @ 275 mls/hr Q12H IV 02/26/20 21:00 02/27/20 14:35 DC 02/26/20 21:53 Vancomycin HCl 750 mg/IV Miscellaneous Supplies 1 each/ Dextrose 275 ml @ 275 mls/hr Q12H IV 02/27/20 20:00 02/29/20 10:52 DC 02/29/20 08:00 Vancomycin HCl 750 mg/IV Miscellaneous Supplies 1 each/ Dextrose 275 ml @ 275 mls/hr Q12H IV 02/29/20 18:00 03/03/20 23:59 03/01/20 05:34 Vancomycin HCl 1250 mg/IV Miscellaneous Supplies 25 ml @ 25 mls/hr Q12H IV 02/26/20 15:30 02/26/20 19:54 NATE HARP MD Mar 01, 2020 11:31
[2020-03-01 14:00] VITALS: BP 122/71
[2020-03-01 20:00] VITALS: BP 105/74
[2020-03-01] MEDS: SENNA 8.6 MG TAB (SENOKOT) PO SCH (20:08)
[2020-03-01] MEDS: SODIUM CHLORIDE 0.9% INJ 10 ML SYR IV PRN (21:35)
[2020-03-02] MEDS: VANCOMYCIN HCL 750 MG, VIAL MATE ADAPTER 1 EACH in D5W 250 ML IV SCH ×2 (05:17→17:16)
[2020-03-02] MEDS: LevoFLOXacin 750 MG TABLET PO SCH (05:17)
[2020-03-02 06:52] VITALS: BP 110/75
[2020-03-02] MEDS: VANCOMYCIN HCL 500 MG in D5W MINI-BAG PLUS 100 ML IV SCH ×2 (06:53→18:20)
[2020-03-02] MEDS: ACETAMINOPHEN 500 MG TAB PO SCH ×3 (07:41→21:00)
[2020-03-02] MEDS: REMEDY PHYTOPLEX Z-GUARD PASTE 113GM TUBE (FROM STOREROOM PRODUCT) TOP SCH ×3 (07:41→21:00)
[2020-03-02] MEDS: DOCUSATE SODIUM 100 MG CAP PO SCH ×2 (07:47→21:30)
[2020-03-02] MEDS: PANTOPRAZOLE 40MG TAB (PROTONIX) PO SCH (07:47)
[2020-03-02] MEDS: POTASSIUM CHLORIDE 10 MEQ SR TABLET PO SCH ×2 (07:47→21:30)
[2020-03-02] MEDS: LACTOBACILLUS ACIDOPHILUS CAP (BACID) PO SCH ×3 (07:47→21:30)
[2020-03-02] MEDS: SODIUM CHLORIDE 0.9% INJ 10 ML SYR IV SCH ×2 (07:48→17:15)
[2020-03-02] MEDS: HEPARIN SOD (PORCINE) 5000UNITS/ML 1ML VIAL/SYRINGE SQ SCH ×2 (07:48→21:33)
[2020-03-02 14:00] VITALS: BP 103/59
[2020-03-02 20:00] VITALS: BP 106/72
[2020-03-02] MEDS: SENNA 8.6 MG TAB (SENOKOT) PO SCH (21:30)
[2020-03-03] MEDS: VANCOMYCIN HCL 750 MG, VIAL MATE ADAPTER 1 EACH in D5W 250 ML IV SCH ×2 (06:40→17:22)
[2020-03-03] MEDS: LevoFLOXacin 750 MG TABLET PO SCH (06:41)
[2020-03-03] MEDS: SODIUM CHLORIDE 0.9% INJ 10 ML SYR IV SCH ×2 (06:41→17:23)
[2020-03-03 06:51] VITALS: BP 116/78
[2020-03-03] MEDS: VANCOMYCIN HCL 500 MG in D5W MINI-BAG PLUS 100 ML IV SCH ×2 (07:44→18:26)
[2020-03-03] MEDS: ACETAMINOPHEN 500 MG TAB PO SCH ×3 (07:45→20:04)
[2020-03-03] MEDS: LACTOBACILLUS ACIDOPHILUS CAP (BACID) PO SCH ×3 (07:45→20:14)
[2020-03-03] MEDS: PANTOPRAZOLE 40MG TAB (PROTONIX) PO SCH (07:45)
[2020-03-03] MEDS: REMEDY PHYTOPLEX Z-GUARD PASTE 113GM TUBE (FROM STOREROOM PRODUCT) TOP SCH ×3 (07:45→20:04)
[2020-03-03] MEDS: POTASSIUM CHLORIDE 10 MEQ SR TABLET PO SCH ×2 (07:45→20:14)
[2020-03-03] MEDS: DOCUSATE SODIUM 100 MG CAP PO SCH ×2 (07:45→20:14)
[2020-03-03] MEDS: HEPARIN SOD (PORCINE) 5000UNITS/ML 1ML VIAL/SYRINGE SQ SCH ×2 (07:45→20:14)
[2020-03-03 14:00] VITALS: BP 126/76
[2020-03-03 20:00] VITALS: BP 116/72
[2020-03-03] MEDS: SENNA 8.6 MG TAB (SENOKOT) PO SCH (20:14)
[2020-03-04] MEDS: SODIUM CHLORIDE 0.9% INJ 10 ML SYR IV SCH ×2 (05:31→17:37)
[2020-03-04 05:33] VITALS: BP 119/70
[2020-03-04 06:52] LABS: BASO % 0.6 % (0.0-1.0); EOS # 0.3 10^3/uL (0.0-0.5); EOS % 5.2 % (0.0-3.0); HEMATOCRIT 45.2 % (42.0-52.0); HEMOGLOBIN 15.1 g/dl (13.5-17.5); LYMPH % 17.7 % (24.0-44.0); MEAN CORPUSCULAR HEMOGLOBIN 30.7 pg (27.0-33.0); MEAN CORPUSCULAR HGB CONC 33.4 g/dl (32.0-36.5); MEAN CORPUSCULAR VOLUME 91.9 fl (80.0-96.0); MONO # 0.7 10^3/uL (0.0-0.8); MONO % 12.4 % (0.0-5.0); NEUTROPHILS # 3.4 10^3/uL (1.5-8.5); NEUTROPHILS % 62.6 % (36.0-66.0); PLATELET COUNT, AUTOMATED 213 10^3/uL (150-450); RED BLOOD COUNT 4.92 10^6/uL (4.30-6.10); WHITE BLOOD COUNT 5.4 10^3/uL (4.0-10.0)
[2020-03-04 07:24] LABS: BLOOD UREA NITROGEN 12 MG/DL (7-18); CALCIUM LEVEL 9.2 MG/DL (8.5-10.1); CARBON DIOXIDE LEVEL 29 MEQ/L (21-32); CHLORIDE LEVEL 105 MEQ/L (98-107); CREATININE FOR GFR 0.96 MG/DL (0.70-1.30); GLOMERULAR FILTRATION RATE > 60.0 (>56); GLUCOSE, FASTING 89 MG/DL (70-100); POTASSIUM SERUM 4.3 MEQ/L (3.5-5.1); SODIUM LEVEL 139 MEQ/L (136-145)
[2020-03-04] MEDS: DOXYCYCLINE HYCLATE 100MG TABLET PO SCH ×2 (08:21→20:22)
[2020-03-04] MEDS: LACTOBACILLUS ACIDOPHILUS CAP (BACID) PO SCH ×3 (08:21→20:22)
[2020-03-04] MEDS: PANTOPRAZOLE 40MG TAB (PROTONIX) PO SCH (08:21)
[2020-03-04] MEDS: HEPARIN SOD (PORCINE) 5000UNITS/ML 1ML VIAL/SYRINGE SQ SCH (08:22)
[2020-03-04] MEDS: ACETAMINOPHEN 500 MG TAB PO SCH ×3 (08:22→20:23)
[2020-03-04] MEDS: DOCUSATE SODIUM 100 MG CAP PO SCH ×2 (08:22→20:22)
[2020-03-04] MEDS: POTASSIUM CHLORIDE 10 MEQ SR TABLET PO SCH ×2 (08:22→20:23)
[2020-03-04] MEDS: REMEDY PHYTOPLEX Z-GUARD PASTE 113GM TUBE (FROM STOREROOM PRODUCT) TOP SCH ×3 (08:22→20:23)
[2020-03-04] MEDS ORDERED: RISATAB3 PO (13:14)
[2020-03-04] MEDS ORDERED: DOXY100T PO (13:14)
[2020-03-04] MEDS ORDERED: KLOR10TA76 PO (13:14)
--- NOTE | 2020-03-04 13:17 | IPNPDOC ---
PM&R Progress Note DATE OF SERVICE: Mar 04, 2020 [employer] Progress Note Subjective: Patient walking outside on uneven terrain and later in his room stating he feels well, no worsening balance issues and is ready to go home tomorrow. REVIEW OF SYSTEMS: The following is a completed review of systems and has been reviewed. Review of systems otherwise unremarkable. PAIN: Patient self reports no pain EYES: No recent vision changes EARS, NOSE, & THROAT: No throat pain, or dysphagia, or rhinorrhea CARDIOVASCULAR: Denies chest pain or palpitations PULMONARY: Denies shortness of breath GASTROINTESTINAL: Denies constipation/diarrhea GENITOURINARY: denies dysuria MUSCULOSKELETAL: generalized weakness NEUROLOGICAL: +ataxia (improving) HEMATOLOGICAL: denies easy bruising SKIN: abdominal incisions and left frontal scalp incisions PSYCHIATRIC: Unremarkable All other review of systems found to be negative. PHYSICAL EXAMINATION: VITAL SIGNS: Please see below. GENERAL: Pleasant and cooperative. No acute distress. HEENT: PERRL. Extraocular movements intact. Clear conjunctiva CARDIOVASCULAR: Regular rate and rhythm. No murmurs, rubs, or gallops LUNGS: Clear to auscultation bilaterally. No wheezes. No rhonchi ABDOMEN: Soft, nontender, nondistended. Normal active bowel sounds, healing laparoscopic incisions NEUROLOGICAL: Alert and oriented times three. Cranial nerves II through XII grossly intact. Sensation grossly intact] +ataxia EXTREMITIES: 5\5 strength bilateral upper extremities. 5\5 strength right lower extremity. 5/5 strength in left lower extremity. 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 rehab- pt/ot advance gait and adls, strengthen/stretch/maintain ROM all 4limbs, fall recovery, dynamic balance training 2. 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 ID- s/p vanco and Levaquin, starting doxycycline per ID recs for CSF cx + cutibacterium- afebrile -f/u ID on d/c 4. cardiac- no known hx 5. resp- encourage incentive spirometry 6. GI- monitor for bowel obstruction, c/u regular diet- abdominal exam benign -ppx protonix 7. DVT ppx- heparin 8. Pain- tylenol and oxycodone 9. dispo- 03-05-20 to home, patient progressing towards goals Allergies Coded Allergies: No Known Allergies (Unverified , 03/13/19) Vital Signs Vital Signs Date Time Temp Pulse Resp B/P (MAP) Pulse Ox O2 Delivery O2 Flow Rate FiO2 03/04/20 05:33 98.3 76 16 119/70 (86) 97 Room Air Laboratory Data CBC/BMP Laboratory Tests 03/04/20 05:28 Labs 24H Laboratory Tests 2 03/04/20 05:28: Immature Granulocyte % (Auto) 1.5, Neutrophils (%) (Auto) 62.6, Lymphocytes (%) (Auto) 17.7L, Monocytes (%) (Auto) 12.4H, Eosinophils (%) (Auto) 5.2H, Basophils (%) (Auto) 0.6, Neutrophils # (Auto) 3.4, Lymphocytes # (Auto) 1.0L, Monocytes # (Auto) 0.7, Eosinophils # (Auto) 0.3, Basophils # (Auto) 0.0, Nucleated Red Blood Cells % (auto) 0.0, Anion Gap 5L, Glomerular Filtration Rate > 60.0, Calcium Level 9.2 Current Medications Current Medications Current Medications Medications (Trade) Dose Ordered Sig/Carito Route PRN Reason Start Time Stop Time Status Last Admin Dose Admin Acetaminophen (Tylenol Tab) 1,000 mg TID PO 02/26/20 21:00 Docusate Sodium (Colace) 100 mg BID PO 02/26/20 21:00 03/04/20 08:22 Doxycycline Hyclate (Vibramycin) 100 mg BID PO 03/04/20 09:00 03/04/20 08:21 Heparin Sodium (Heparin (Flush)) 200 units ASDIRECTED PRN IV SEE LABEL COMMENTS 02/27/20 16:45 03/01/20 21:35 Heparin Sodium (Heparin (Flush)) 200 units PICC IV 02/27/20 18:00 03/04/20 05:31 Heparin Sodium (Porcine) (Heparin) 5,000 units BID SQ 02/26/20 21:00 03/04/20 09:46 DC 03/04/20 08:22 Home Med (Med Rec Complete!) ASDIRECTED XX 02/26/20 18:30 02/26/20 18:31 DC Lactobacillus Acidophilus (Bacid) 1 ea TID PO 02/26/20 21:00 03/04/20 08:21 Levofloxacin (Levaquin) 750 mg DAILY@06 PO 02/27/20 06:00 03/03/20 21:00 DC 03/03/20 06:41 Ondansetron HCl (Zofran) 4 mg Q6HP PRN PO NAUSEA 02/26/20 15:30 Oxycodone HCl (Roxicodone, Oxyir) 5 mg Q4HP PRN PO PAIN 02/26/20 15:30 03/04/20 09:46 DC Pantoprazole Sodium (Protonix) 40 mg DAILY PO 02/27/20 09:00 03/04/20 08:21 Potassium Chloride (Micro-K Extencaps) 20 meq BID PO 02/26/20 21:00 03/04/20 08:22 Senna (Senokot) 1 tab QHS PO 02/26/20 21:00 03/03/20 20:14 Sodium Chloride (Saline Lock Flush) 10 ml ASDIRECTED PRN IV SEE LABEL COMMENTS 02/27/20 16:45 03/01/20 21:35 Sodium Chloride (Saline Lock Flush) 10 ml PICC IV 02/27/20 18:00 03/04/20 05:31 Vancomycin HCl 500 mg/Dextrose 110 ml @ 110 mls/hr Q12H IV 02/26/20 22:00 02/27/20 14:35 DC 02/26/20 23:13 Vancomycin HCl 500 mg/Dextrose 110 ml @ 110 mls/hr Q12H IV 02/27/20 21:00 02/29/20 10:55 DC 02/29/20 10:38 Vancomycin HCl 500 mg/Dextrose 110 ml @ 110 mls/hr Q12H IV 02/29/20 19:00 03/03/20 23:59 DC 03/03/20 18:26 Vancomycin HCl 750 mg/IV Miscellaneous Supplies 1 each/ Dextrose 275 ml @ 275 mls/hr Q12H IV 02/26/20 21:00 02/27/20 14:35 DC 02/26/20 21:53 Vancomycin HCl 750 mg/IV Miscellaneous Supplies 1 each/ Dextrose 275 ml @ 275 mls/hr Q12H IV 02/27/20 20:00 02/29/20 10:52 DC 02/29/20 08:00 Vancomycin HCl 750 mg/IV Miscellaneous Supplies 1 each/ Dextrose 275 ml @ 275 mls/hr Q12H IV 02/29/20 18:00 03/03/20 23:59 DC 03/03/20 17:22 Vancomycin HCl 1250 mg/IV Miscellaneous Supplies 25 ml @ 25 mls/hr Q12H IV 02/26/20 15:30 02/26/20 19:54 NATE HARP MD Mar 04, 2020 13:17
[2020-03-04 14:00] VITALS: BP 109/71
[2020-03-04 20:13] VITALS: BP 128/76
[2020-03-04] MEDS: SENNA 8.6 MG TAB (SENOKOT) PO SCH (20:22)
[2020-03-05] MEDS: SODIUM CHLORIDE 0.9% INJ 10 ML SYR IV SCH (05:12)
[2020-03-05 06:10] VITALS: BP 124/79
[2020-03-05] MEDS: DOXYCYCLINE HYCLATE 100MG TABLET PO SCH (08:53)
[2020-03-05] MEDS: PANTOPRAZOLE 40MG TAB (PROTONIX) PO SCH (08:53)
[2020-03-05] MEDS: LACTOBACILLUS ACIDOPHILUS CAP (BACID) PO SCH (08:53)
[2020-03-05] MEDS: POTASSIUM CHLORIDE 10 MEQ SR TABLET PO SCH (08:53)
[2020-03-05] MEDS: REMEDY PHYTOPLEX Z-GUARD PASTE 113GM TUBE (FROM STOREROOM PRODUCT) TOP SCH (08:54)
[2020-03-05] MEDS: ACETAMINOPHEN 500 MG TAB PO SCH (08:54)
[2020-03-05] MEDS: DOCUSATE SODIUM 100 MG CAP PO SCH (08:54)
[2020-03-05] MEDS ORDERED: NEOSPORIN TOP OINT 15GM TOP ONE ×2 (11:00→11:15)
--- NOTE | 2020-03-12 13:14 | PMRDS ---
DATE OF ADMISSION: 02/26/2020 DATE OF DISCHARGE: 03/05/2020 CHIEF COMPLAINT/DISCHARGE DIAGNOSIS: Hydrocephalus status post [employer] shunt placement. 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 Presented to [facility] on 02/10/2020 with fatigue and worsening mental status and a CTH on 02/11/2020 showing slight interval increase in ventricular size when compared to the prior. There is new pneumocephalus noted in the right anterior lateral ventricle, the temporal horn of the left ventricle and some air noted tracking along the posterior falx region. Hypoattenuation noted surrounding the periventricular regions likely related to transependymal edema. No evidence of acute infarction or intracranial hemorrhage. He was evaluated by Neurosurgery for his hydrocephalus and underwent removal of the infected left frontal VPS with EVD placement and started on IV antibiotics for CSF cultures growing Cutibacterium. He had an allergic reaction to ceftriaxone and was maintained on vanco and IV Levaquin to be continued until switching to p.o. doxycycline on 03/04/2020. On 02/23/2020, he returned to the OR for a left frontal [employer] shunt lap-assisted procedure with postop complications of nausea, vomiting, and dilated bowels on 02/24/2020. NG tube was initially placed, but he then had a bowel movement with flatus and was advanced from clear liquid to regular diet on 02/26/2020. He was noted to have hypokalemia and given supplementation. He had deficits in mobility and ADLs below his prior level of functioning and was deemed medically appropriate for discharge to ARU. PAST MEDICAL HISTORY: As per HPI. HOSPITAL COURSE: Patient was admitted and enrolled in a comprehensive PT/OT program. He received 24 hour nursing supervision, and weekly team meetings were held to discuss his progress. Patient finished up a course of IV vancomycin and Levaquin and was transitioned to p.o. doxycycline with no fevers, chills, or leukocytosis. Patient was able to tolerate diet with no signs of bowel obstruction and had minimal pain during his hospital course. He made significant and steady gains in therapy and was deemed functionally medically stable to return home. DISCHARGE MEDICATIONS: As per instructions. FUNCTIONAL HISTORY ON DISCHARGE: Patient was modified independent for ambulation, dressing, and toileting. Thank you for this referral. TIKA
== END 2020-03-05 14:30 | disposition home or self-care (01) | DRG 861 ==
LOC: M PM&R 17:15
PROVIDERS: ADMIT Physical Medicine & Rehabilitation; ATTEND Physical Medicine & Rehabilitation
DX: R53.83 Other fatigue (principal); Q85.01 Neurofibromatosis, type 1; G91.9 Hydrocephalus, unspecified; T82.7XXD Infection and inflammatory reaction due to other cardiac and vascular devices, implants and grafts, subsequent encounter; Z74.09 Other reduced mobility; Z79.899 Other long term (current) drug therapy